=== PATIENT | female | born 1945 | race Caucasian/White ===

== ENCOUNTER 2018-09-19 19:08 | Inpatient (IN) ==
[2018-09-19 20:39] LABS: Basophils % 0.2 %; Eosinophils # 0.1 K/mcL (0.0-0.6); Eosinophils % 0.6 %; Hematocrit 30.7 % (35.3-44.9); Hemoglobin 9.1 g/dL (11.5-15.4); Immature Granulocytes % 1.2 % (0-4); Lymphocytes # 1.3 K/mcL (0.6-4.6); Lymphocytes % 10.4 %; Mean Corpuscular HGB Conc 29.6 g/dL (31.6-35.5); Mean Corpuscular Hemoglobin 28.2 pg (28.0-33.3); Mean Platelet Volume 9.9 fL (9.4-12.4); Monocytes # 0.5 K/mcL (0.0-1.3); Monocytes % 3.9 %; Neutrophils # 10.5 K/mcL (1.6-8.9); Platelet Count 235 K/mcL (140-400); Red Blood Count 3.23 M/mcL (3.82-4.97); Red Cell Distribution Width 18.8 % (11.5-14.5); Segmented Neutrophils % 83.7 %; White Blood Count 12.5 K/mcL (4.3-11.1)
[2018-09-19 20:56] LABS: INR 2.2
[2018-09-19 20:57] LABS: Potassium 2.8 mEq/L (3.5-5.1)
[2018-09-19] MEDS ORDERED: *HR* Heparin 5,000 UNIT/ML VIAL IVP PRN ×2 (21:19)
[2018-09-19] MEDS ORDERED: *HR* Heparin 5,000 UNIT/ML VIAL IVP ONE (21:19)
[2018-09-19] MEDS ORDERED: Potassium Effervescent 25 MEQ TABLET.EFF PO ONE (21:22)
--- NOTE | 2018-09-19 21:22 | Emergency Department Note ---
Disposition Clinical Impression: Hypokalemia, Elevated serum creatinine Anemia Qualifiers: Anemia type: unspecified type Qualified Code(s): D64.9 - Anemia, unspecified Deep vein thrombosis (DVT) of iliac vein of left lower extremity Qualifiers: Chronicity: acute Qualified Code(s): I82.422 - Acute embolism and thrombosis of left iliac vein Disposition: Admitted As Inpatient Condition: Good Referrals: Carol Lee CNP [Primary Care Provider] - Forms: ED Satisfaction Letter Time of Disposition: 00:08 General Adult HPI - General Chief complaint: ED Extremity Problem,Nontraumatic Stated complaint: Poss DVT Time Seen by Provider: 09/19/18 20:04 Source: patient Nursing Notes Reviewed: Yes Vital Signs Reviewed: Yes - History of Present Illness HPI Narrative: 73-year-old female with history of hypertension, lung cancer, COPD, DVT, diabetes who presents emergency Department with complaints of left lower extremity DVT. The patient was seen by hematology and was sent for DVT ultrasound given left lower extremity swelling and was found to have extensive partially occlusive thrombus in the left lower extremity. Patient states she has had previous DVT and actually was on Xarelto up until last week when she decided to stop taking her medication as she was tired of taking it. She notes that she had significant swelling over the last 24 hours and therefore did take a dose of her Xarelto this morning. Patient states she is otherwise had multiple mechanical recent falls without loss of consciousness or head injury. She otherwise denies any shortness of breath, chest pain, nausea, vomiting, diarrhea, dysuria, hematochezia, melena, hemoptysis. Pain Scale: 7 - Related Data Home Medications Medication Instructions Recorded Confirmed Atorvastatin Calcium [Lipitor] 20 mg PO HS 04/16/17 09/19/18 Gabapentin [Neurontin] 300 mg PO TID 04/16/17 09/19/18 GlipiZIDE [Glucotrol] 5 mg PO BID 04/16/17 09/19/18 Lisinopril [Zestril] 40 mg PO DAILY 04/16/17 09/19/18 Oxybutynin [Ditropan] 5 mg PO BID 04/16/17 09/19/18 Ranitidine HCl [Heartburn Relief] 150 mg PO BID 04/16/17 09/19/18 Sertraline [Zoloft] 100 mg PO DAILY 04/16/17 09/19/18 Spironolactone [Aldactone] 25 mg PO DAILY 04/16/17 09/19/18 Alendronate Sodium 70 mg PO SANCHES 05/27/17 09/19/18 Allopurinol [Zyloprim 100 MG] 100 mg PO DAILY 05/27/17 09/19/18 Amlodipine Besylate 10 mg PO DAILY 05/27/17 09/19/18 HYDROcodone/Acet 5/325 mg [[place] 1 tab PO Q6H PRN 09/19/18 09/19/18 5-325 mg] Rivaroxaban [Xarelto] 20 mg PO DAILY 09/19/18 09/19/18 Previous Rx's Medication Instructions Recorded Pramoxine [Proctofoam] 15 gm TP TID #1 foam 09/14/17 Allergies Allergy/AdvReac Type Severity Reaction Status Date / Time iodine Allergy Hives Verified 05/27/17 08:52 Review of Systems: ROS per history of present illness, all other systems reviewed and negative or normal. All systems ED: reviewed and negative except as stated. Review of Systems: As Per HPI Past Medical History - Past Medical History Medical history: Reports: asthma, cancer, DVT, diabetes, fibromyalgia, hypertension Surgical history: Reports: , cholecystectomy, hysterectomy Psychiatric history: Reports: depression - Social History Smoking Status: Current every day smoker Smokeless Tobacco Status: No Alcohol use: Reports: none Drug use: Reports: none Physical Exam General: Conversant. No apparent distress. Follow commands. Appears stated age. Neck: No JVD. Trachea midline. Neck supple. Eyes: PERRL. No scleral icterus. HENT: Normocephalic and atraumatic. Moist mucus membranes. Cardiovascular: Regular rate and rhythm. Normal S1 and S2. No murmurs appreci ated. Normal capillary refill. Extremities well perfused with 2+ distal pulses bilaterally. No edema. Pulmonary: Normal and equal breath sounds bilaterally, anteriorly and posteriorly. No wheezes, rales, or rhonchi. Not in respiratory distress. Speaks in full sentences. Abdomen: Soft, nondistended, and tontender. No bruits or masses. No guarding. Neuro: Alert and oriented x3. No slurred speech. No focal deficits noted. Skin: No rashes noted on visualized skin. Musculoskeletal: Patient's left lower extremity has significant edema when compared with the right, approximately twice the size. Trace edema pretibial. Normal sensation and pulses bilaterally. Psych: Normal mood. Pleasant. Makes appropriate eye contact. - General General appearance: alert Course Vital Signs Temperature 97.9 F 09/19/18 19:16 Pulse Rate 89 09/19/18 19:16 Respiratory Rate 16 09/19/18 19:16 Blood Pressure 143/87 09/19/18 19:16 O2 Sat by Pulse Oximetry 97 09/19/18 19:16 Temperature 97.9 F 09/19/18 19:16 Pulse Rate 100 09/19/18 22:00 Respiratory Rate 18 09/19/18 22:00 Blood Pressure 138/98 09/19/18 22:00 O2 Sat by Pulse Oximetry 100 09/19/18 22:00 Oxygen Delivery Oxygen Delivery Room Air Medical Decision Making - MDM Narrative Medical decision making narrative: 73-year-old female with history of lung cancer, DVT previously on Xarelto who stopped her medication last week. Vital signs are stable upon arrival. The patient does have significant left lower extremity swelling when compared with the right. She has no erythema or warmth. Pulses are intact. Ultrasound was reviewed from outpatient lab which shows extensive DVT including left common femoral, iliac extending all the way into her lower left leg. The patient is not tachycardic or hypoxic area she is not in no respiratory distress to be concern for pulmonary embolism. Given her multiple recent falls will evaluate with CT chest, abdomen/pelvis with CT lumbar and thoracic spine. Laboratory evaluation shows chronic-appearing anemia, hypokalemia which was repleted. The patient does have elevated creatinine but unsure of origin of this given she has had no recent blood work and unable to determine whether this is acute. The patient has evidence of multiple compression fractures. Otherwise the patient was ordered a heparin drip given her hypercoagulable state that she did take Xarelto and therefore this was not initiated. Discussed case with on-call hospitalist Dr. Lainez who agrees with plan for admission and accepts the patient to the inpatient service. Patient agrees with and understands course of treatment plan including plan for admission. All questions answered. - Medical Records Medical records reviewed: Yes I reviewed the patient's medical records. - Lab Data Lab results reviewed: Yes I reviewed the patient's lab results. Result diagrams: 09/19/18 20:26 09/19/18 20:26 Lab Results 09/19/18 09/19/18 09/19/18 Range/Units 20:26 20:26 20:26 WBC 12.5 H (4.3-11.1) K/mcL RBC 3.23 L (3.82-4.97) M/mcL Hgb 9.1 L (11.5-15.4) g/dL Hct 30.7 L (35.3-44.9) % MCV 95.0 (83.0-100.0) fL MCH 28.2 (28.0-33.3) pg MCHC 29.6 L (31.6-35.5) g/dL RDW 18.8 H (11.5-14.5) % Plt Count 235 (140-400) K/mcL MPV 9.9 (9.4-12.4) fL Immature Gran % 1.2 (0-4) % Seg Neutrophils % 83.7 % Lymphocytes % 10.4 % Monocytes % 3.9 % Eosinophils % 0.6 % Basophils % 0.2 % Neutrophils # 10.5 H (1.6-8.9) K/mcL Lymphocytes # 1.3 (0.6-4.6) K/mcL Monocytes # 0.5 (0.0-1.3) K/mcL Eosinophils # 0.1 (0.0-0.6) K/mcL Basophils # 0.0 (0.0-0.2) K/mcL PT 25.0 H (9.4-12.1) Seconds INR 2.2 APTT 38.0 H (26.0-36.0) Seconds Heparin Anti-Xa, Unfract (0.30-0.70) IU/mL Sodium 134 L (136-145) mEq/L Potassium 2.8 L (3.5-5.1) mEq/L Chloride 101 (98-107) mEq/L Carbon Dioxide 24 (23-29) mEq/L BUN 41 H (8-23) mg/dL Creatinine 1.34 H (0.60-1.20) mg/dL Est GFR ( Amer) 47 L (> 60) Est GFR (Non-Af Amer) 39 L (> 60) BUN/Creatinine Ratio 31 H (6-26) Glucose 117 H (70-105) mg/dL Calculated Osmolality 289 (280-300) Calcium 10.0 (8.6-10.3) mg/dL 09/19/18 Range/Units 20:26 WBC (4.3-11.1) K/mcL RBC (3.82-4.97) M/mcL Hgb (11.5-15.4) g/dL Hct (35.3-44.9) % MCV (83.0-100.0) fL MCH (28.0-33.3) pg MCHC (31.6-35.5) g/dL RDW (11.5-14.5) % Plt Count (140-400) K/mcL MPV (9.4-12.4) fL Immature Gran % (0-4) % Seg Neutrophils % % Lymphocytes % % Monocytes % % Eosinophils % % Basophils % % Neutrophils # (1.6-8.9) K/mcL Lymphocytes # (0.6-4.6) K/mcL Monocytes # (0.0-1.3) K/mcL Eosinophils # (0.0-0.6) K/mcL Basophils # (0.0-0.2) K/mcL PT (9.4-12.1) Seconds INR APTT (26.0-36.0) Seconds Heparin Anti-Xa, Unfract > 2.00 H* (0.30-0.70) IU/mL Sodium (136-145) mEq/L Potassium (3.5-5.1) mEq/L Chloride (98-107) mEq/L Carbon Dioxide (23-29) mEq/L BUN (8-23) mg/dL Creatinine (0.60-1.20) mg/dL Est GFR ( Amer) (> 60) Est GFR (Non-Af Amer) (> 60) BUN/Creatinine Ratio (6-26) Glucose (70-105) mg/dL Calculated Osmolality (280-300) Calcium (8.6-10.3) mg/dL - Radiology Data Radiology results reviewed: Yes I reviewed the patient's radiology results. Lower shimmy venous Doppler completed 09/19/18 shows partially occlusive DVT of the left distal iliac, left common femoral, left superficial femoral, left popliteal, left posterior tibial, left perineal, and lesser saphenous. - EKG Data EKG #1 EKG attestation: Yes I reviewed and interpreted this EKG. EKG results narrative: Normal sinus rhythm rate 94. Normal intervals. Slight left axis. There were T- wave inversions in aVL. When compared with prior from 09/14/17 there are no other significant changes. Attestation Statement - Attestation Attestation: I, Roger Wharton DO, examined this patient [id number] and my medical decision-making was reviewed with Dr. Nicole Hatfield, Resident Physician. I agree with the documented findings, disposition and treatment plan as described except to the extent set forth below. I personally supervised and was present for the gaytan/critical portions of the procedures completed by the resident documented below. Please see my progress notes for details.
[2018-09-19] MEDS ORDERED: Heparin 25,000 UNIT/250 ML D5W 25,000 UNIT/250 ML IV.SOLN IVC SCH (21:30)
[2018-09-19] MEDS ORDERED: 0.9 % Sodium Chloride 1,000 ML IVC STA (21:43)
--- NOTE | 2018-09-19 22:34 | Emergency Department Note ---
Disposition Clinical Impression: Hypokalemia, Elevated serum creatinine, Deep vein thrombosis (DVT) of iliac vein of left lower extremity Anemia Qualifiers: Anemia type: unspecified type Qualified Code(s): D64.9 - Anemia, unspecified Disposition: Admitted As Inpatient Condition: Fair Time of Disposition: 00:21 General Adult HPI - General Chief complaint: ED Extremity Problem,Nontraumatic Stated complaint: Poss DVT Time Seen by Provider: 09/19/18 20:04 Source: patient - History of Present Illness Pain Scale: 7 - Related Data Home Medications Medication Instructions Recorded Confirmed Atorvastatin Calcium [Lipitor] 20 mg PO HS 04/16/17 09/19/18 Gabapentin [Neurontin] 300 mg PO TID 04/16/17 09/19/18 GlipiZIDE [Glucotrol] 5 mg PO BID 04/16/17 09/19/18 Lisinopril [Zestril] 40 mg PO DAILY 04/16/17 09/19/18 Oxybutynin [Ditropan] 5 mg PO BID 04/16/17 09/19/18 Ranitidine HCl [Heartburn Relief] 150 mg PO BID 04/16/17 09/19/18 Sertraline [Zoloft] 100 mg PO DAILY 04/16/17 09/19/18 Spironolactone [Aldactone] 25 mg PO DAILY 04/16/17 09/19/18 Alendronate Sodium 70 mg PO SANCHES 05/27/17 09/19/18 Allopurinol [Zyloprim 100 MG] 100 mg PO DAILY 05/27/17 09/19/18 Amlodipine Besylate 10 mg PO DAILY 05/27/17 09/19/18 HYDROcodone/Acet 5/325 mg [[place] 1 tab PO Q6H PRN 09/19/18 09/19/18 5-325 mg] Rivaroxaban [Xarelto] 20 mg PO DAILY 09/19/18 09/19/18 Previous Rx's Medication Instructions Recorded Pramoxine [Proctofoam] 15 gm TP TID #1 foam 09/14/17 Allergies Allergy/AdvReac Type Severity Reaction Status Date / Time iodine Allergy Hives Verified 05/27/17 08:52 Past Medical History - Past Medical History Medical history: Reports: asthma, cancer, DVT, diabetes, fibromyalgia, hypertension Surgical history: Reports: , cholecystectomy, hysterectomy Psychiatric history: Reports: depression - Social History Smoking Status: Current every day smoker Smokeless Tobacco Status: No Alcohol use: Reports: none Drug use: Reports: none Physical Exam - General General appearance: alert Course Vital Signs Temperature 97.9 F 09/19/18 19:16 Pulse Rate 89 09/19/18 19:16 Respiratory Rate 16 09/19/18 19:16 Blood Pressure 143/87 09/19/18 19:16 O2 Sat by Pulse Oximetry 97 09/19/18 19:16 Temperature 97.9 F 09/19/18 19:16 Pulse Rate 100 09/19/18 22:00 Respiratory Rate 18 09/19/18 22:00 Blood Pressure 138/98 09/19/18 22:00 O2 Sat by Pulse Oximetry 100 09/19/18 22:00 Oxygen Delivery Oxygen Delivery Room Air Medical Decision Making - Lab Data Result diagrams: 09/19/18 20:26 09/19/18 20:26 Lab Results 09/19/18 09/19/18 09/19/18 Range/Units 20:26 20:26 20:26 WBC 12.5 H (4.3-11.1) K/mcL RBC 3.23 L (3.82-4.97) M/mcL Hgb 9.1 L (11.5-15.4) g/dL Hct 30.7 L (35.3-44.9) % MCV 95.0 (83.0-100.0) fL MCH 28.2 (28.0-33.3) pg MCHC 29.6 L (31.6-35.5) g/dL RDW 18.8 H (11.5-14.5) % Plt Count 235 (140-400) K/mcL MPV 9.9 (9.4-12.4) fL Immature Gran % 1.2 (0-4) % Seg Neutrophils % 83.7 % Lymphocytes % 10.4 % Monocytes % 3.9 % Eosinophils % 0.6 % Basophils % 0.2 % Neutrophils # 10.5 H (1.6-8.9) K/mcL Lymphocytes # 1.3 (0.6-4.6) K/mcL Monocytes # 0.5 (0.0-1.3) K/mcL Eosinophils # 0.1 (0.0-0.6) K/mcL Basophils # 0.0 (0.0-0.2) K/mcL PT 25.0 H (9.4-12.1) Seconds INR 2.2 APTT 38.0 H (26.0-36.0) Seconds Heparin Anti-Xa, Unfract (0.30-0.70) IU/mL Sodium 134 L (136-145) mEq/L Potassium 2.8 L (3.5-5.1) mEq/L Chloride 101 (98-107) mEq/L Carbon Dioxide 24 (23-29) mEq/L BUN 41 H (8-23) mg/dL Creatinine 1.34 H (0.60-1.20) mg/dL Est GFR ( Amer) 47 L (> 60) Est GFR (Non-Af Amer) 39 L (> 60) BUN/Creatinine Ratio 31 H (6-26) Glucose 117 H (70-105) mg/dL Calculated Osmolality 289 (280-300) Calcium 10.0 (8.6-10.3) mg/dL 09/19/18 Range/Units 20:26 WBC (4.3-11.1) K/mcL RBC (3.82-4.97) M/mcL Hgb (11.5-15.4) g/dL Hct (35.3-44.9) % MCV (83.0-100.0) fL MCH (28.0-33.3) pg MCHC (31.6-35.5) g/dL RDW (11.5-14.5) % Plt Count (140-400) K/mcL MPV (9.4-12.4) fL Immature Gran % (0-4) % Seg Neutrophils % % Lymphocytes % % Monocytes % % Eosinophils % % Basophils % % Neutrophils # (1.6-8.9) K/mcL Lymphocytes # (0.6-4.6) K/mcL Monocytes # (0.0-1.3) K/mcL Eosinophils # (0.0-0.6) K/mcL Basophils # (0.0-0.2) K/mcL PT (9.4-12.1) Seconds INR APTT (26.0-36.0) Seconds Heparin Anti-Xa, Unfract > 2.00 H* (0.30-0.70) IU/mL Sodium (136-145) mEq/L Potassium (3.5-5.1) mEq/L Chloride (98-107) mEq/L Carbon Dioxide (23-29) mEq/L BUN (8-23) mg/dL Creatinine (0.60-1.20) mg/dL Est GFR ( Amer) (> 60) Est GFR (Non-Af Amer) (> 60) BUN/Creatinine Ratio (6-26) Glucose (70-105) mg/dL Calculated Osmolality (280-300) Calcium (8.6-10.3) mg/dL Attestation Statement - Attestation Attestation: I, Roger Wharton DO, examined this patient [id number] and my medical decisi on-making was reviewed with Dr. Nicole Hatfield Resident Physician. I agree with the documented findings, disposition and treatment plan as described except to the extent set forth below. I personally supervised and was present for the gaytan/critical portions of the procedures completed by the resident documented below. Please see my progress notes for details. 73-year-old female presents emergency room with complaint of left leg swelling and pain. Patient is currently in treatment for lung cancer at [facility]. Currently, she is denying chest pain shortness of breath fevers or chills. Does not have any nausea vomiting or diarrhea. No other acute issues noted this time. Patient was sent for an outpatient ultrasound lower extremity by her oncologist. She is found to have extensive DVT. She was previously on Xarelto secondary to a DVT in the same leg. She is not taking the medication for almost 1 week secondary to the symptoms. Patient did take her Xarelto last night. She has not been taking all her other medications as they are prescribed. She is currently not taking chemotherapy or radiation. Vital signs are reviewed and are stable. Patient is alert she is oriented. Patient has fallen 3 times the last several days. She was evaluated for the first fall but has not been evaluated for the second 2 falls. Head is atraumatic. Pupils were reactive. Extracted muscles are intact. Oropharynx is patent. Trachea is midline. Lungs are clear with diminished aeration the left side. Abdomen is soft no pulsatile masses or lesions. Pain is noted in the lower back. Pelvis is stable. Tremors are normal outside of warmth and swelling to left lower extremity this time. Ultrasound results were reviewed by myself. Patient was started on a heparin drip at this point secondary to the extent of the DVT. Patient was CT of the chest and abdomen along with reconstruction of the thoracic and lumbar spine secondary to the fall. Patient is otherwise stable this point. EKG was collected. Is no acute changes. This is reviewed by myself in documented in the resident physician's note. No critical care provider the patient's treatment course at this time. [id number] for chest wall related issues or abdominal pathology. She does have what appears to be a lytic lesion to the apex of the sixth rib. She also has multiple compression fractures. Some of them are old some of them may be new from the falls. Patient's last fall was yesterday. She has better pain control this point. She denies any other symptoms or issues. She is lying on her side in the bed and says that she feels completely comfortable. Hospita list Dr. clinton and I reviewed the case at length. No other recommendations or concerns. Magnesium test was ordered. Patient will be monitored here in the emergency department until admission process is completed.
[2018-09-19] MEDS ORDERED: *HR* FentaNYL (PF) 100 MCG/2 ML VIAL IVP ONE (22:36)
[2018-09-20] MEDS: Heparin 25,000 UNIT/250 ML D5W 25,000 UNIT/250 ML IV.SOLN IVC SCH (03:58)
[2018-09-20] MEDS ORDERED: Naloxone 0.4 MG/ML INJ IVP PRN (06:29)
[2018-09-20 06:30] LABS: Basophils % 0.1 %; Eosinophils # 0.1 K/mcL (0.0-0.6); Eosinophils % 0.7 %; Hematocrit 26.7 % (35.3-44.9); Hemoglobin 7.9 g/dL (11.5-15.4); Immature Granulocytes % 0.9 % (0-4); Lymphocytes # 1.4 K/mcL (0.6-4.6); Lymphocytes % 11.1 %; Mean Corpuscular HGB Conc 29.6 g/dL (31.6-35.5); Mean Corpuscular Hemoglobin 28.3 pg (28.0-33.3); Mean Corpuscular Volume 95.7 fL (83.0-100.0); Mean Platelet Volume 10.3 fL (9.4-12.4); Monocytes # 0.5 K/mcL (0.0-1.3); Neutrophils # 10.5 K/mcL (1.6-8.9); Platelet Count 216 K/mcL (140-400); Red Blood Count 2.79 M/mcL (3.82-4.97); Red Cell Distribution Width 18.7 % (11.5-14.5); Segmented Neutrophils % 83.2 %; White Blood Count 12.7 K/mcL (4.3-11.1)
[2018-09-20] MEDS ORDERED: *HR* Dextrose 50 % in Water (Syg) 50 ML SYRINGE IVP PRN (06:34)
[2018-09-20] MEDS ORDERED: Dextrose Gel 15 GM/37.5 ML TUBE PO PRN ×2 (06:34)
[2018-09-20] MEDS ORDERED: D5% in Water 1,000 ML IVC PRN (06:34)
--- NOTE | 2018-09-20 06:49 | Internal Med History&Physical ---
Date of Encounter: 09/20/18 Time of Encounter: 06:00 Internal Medicine - H&P: HPI Chief complaint: DVT Admitted From: Home Plans for Post Hospital Care: Home History of present illness: Ms. Frank is a 73 year old female with past medical history significant for hypertension, DVT, COPD, asthma, lung cancer, diabetes, depression, and tobacco abuse who presents to ER for left lower extremity swelling and positive outpa tient ultrasound results showing extensive DVT including left femoral, iliac extending all the way into her left leg. Patient was prescribed Xarelto for previous DVT in same leg but reports taking it inconsistently with last dose being reportedly yesterday morning. Patient also reports frequent mechanical falls at home but denies striking her head, loosing consciousness, or feeling like shes going to pass out. Was recently diagnosed with lung cancer and is following with oncology at [facility] getting ready to start chemo and radiation. While in ER patient also complained of some pain to her back from recent falls otherwise had no other complaints besides left lower extremity swelling. ER obtained CT of the abdomen pelvis which showed no acute abdominopelvic abnormality. Also obtained CT of the chest which is still not signed which showed confluence right hilar mass with associated right midlung airspace disease most likely neoplastic, infection not entirely excluded, bilateral cavitary lesions with right larger than left that may represent advanced neoplasm or infectious versus inflammatory process, round opacity in the right midlung exerts mass effect upon the right mainstem bronchus, sternal and left sixth rib lesion suspicious for neoplasm versus sequela of prior trauma. ER also obtained CT of lumbar and thoracic spine which is still not signed which showed age-indeterminate compression fractures of T5, T7, T8, L1, L3, and multilevel degenerative changes. ER reported EKG as sinus rhythm with no significant changes when compared with prior from 09/14/17. Patient upon my exam currently denies any headache, numbness, tingling, chest pain, shortness of breath, cough, abdominal pain, nausea, bowel or bladder changes. Reports following regularly with her PCP and recently with [facility] oncology. Reports she lives at home with her significant other who helps take care of her. Reports recent decrease in oral intake just because she has not felt like eating. Past Med Surg Social Fam HX - Past Medical History Medical history: asthma, cancer, COPD, DVT, diabetes, fibromyalgia, hypertension Additional medical history: DDD Psychiatric history: depression - Past Surgical History Surgical History: , cholecystectomy, hysterectomy Additional surgical history: Left humerus ORIF 04/16/17 - Social History Smoking Status: Current every day smoker Smokeless Tobacco Status: No Alcohol use: none Drug use: none Internal Medicine - H&P: Meds Atorvastatin Calcium [Lipitor] 20 mg PO HS 04/16/17 [History] Gabapentin [Neurontin] 300 mg PO TID 04/16/17 [History] GlipiZIDE [Glucotrol] 5 mg PO BID 04/16/17 [History] Lisinopril [Zestril] 40 mg PO DAILY 04/16/17 [History] Oxybutynin [Ditropan] 5 mg PO BID 04/16/17 [History] Ranitidine HCl [Heartburn Relief] 150 mg PO BID 04/16/17 [History] Sertraline [Zoloft] 100 mg PO DAILY 04/16/17 [History] Spironolactone [Aldactone] 25 mg PO DAILY 04/16/17 [History] Alendronate Sodium 70 mg PO SANCHES 05/27/17 [History] Allopurinol [Zyloprim 100 MG] 100 mg PO DAILY 05/27/17 [History] Amlodipine Besylate 10 mg PO DAILY 05/27/17 [History] Pramoxine [Proctofoam] 15 gm TP TID #1 foam 09/14/17 [Rx] HYDROcodone/Acet 5/325 mg [[place] 5-325 mg] 1 tab PO Q6H PRN 09/19/18 [History] Rivaroxaban [Xarelto] 20 mg PO DAILY 09/19/18 [History] Allergy/AdvReac Type Severity Reaction Status Date / Time iodine Allergy Hives Verified 05/27/17 08:52 All Systems PM: A 10-system review of systems was performed and is negative for pertinent findings except as documented above in the HPI. - Constitutional Vitals: Temp Pulse Resp BP Pulse Ox 98.5 F 81 16 132/75 100 09/20/18 03:24 09/20/18 03:24 09/20/18 03:24 09/20/18 03:24 09/20/18 03:24 Exam: General: Alert and oriented to person, time, knew she was in hospital but thought she was in [place], able to be reoriented. Frail-appearing. Skin:Normal color, no rash, no lesions. HEENT:Pupils equal, round and reactive. Cardiovascular: Heart sounds distant, no rubs, murmurs or gallops. No JVD. Pulse regular. Lungs: Breath sounds decreased with rhonchi noted. Abdomen:Soft, non-tender, no rigidity. Extremities:No deformity, tenderness, no joint swelling or clubbing. Edema noted to left lower extremity larger than right, nontender, distal PMS intact. Neurological:Normal cognition and motor skills. Pulses:Carotid and radial pulses normal +2. Rest of the physical exam is non contributory. Internal Med - H&P Results - Labs CBC & Chem 7: 09/20/18 04:38 09/20/18 04:38 Labs: Short CBC 09/19/18 09/20/18 Range/Units 20:26 04:38 WBC 12.5 H 12.7 H (4.3-11.1) K/mcL Hgb 9.1 L 7.9 L (11.5-15.4) g/dL Hct 30.7 L 26.7 L (35.3-44.9) % Plt Count 235 216 (140-400) K/mcL Neutrophils # 10.5 H 10.5 H (1.6-8.9) K/mcL BMP 09/19/18 20:26 Sodium 134 L Potassium 2.8 L Chloride 101 Carbon Dioxide 24 BUN 41 H Creatinine 1.34 H Glucose 117 H Calcium 10.0 - Impressions ITS Impressions Abdomen/Pelvis CT 09/19/18 22:14 IMPRESSION: No acute noncontrast abdominopelvic abnormality. D/ / Deisy Elena Cha, MD / Deisy Elena Cha, MD Interpreting Provider: Deisy Elena Cha, MD Chest CT 09/19/18 22:14 IMPRESSION: Confluent right hilar mass with associated right midlung airspace disease most likely neoplastic. Infection not entirely excluded. Bilateral cavitary lesions, right larger than left may represent advanced neoplasm or infectious versus inflammatory process. Round opacity in the right mid lung exerts mass effect upon the right mainstem bronchus. Sternal and left 6th rib lesions suspicious for neoplasm versus sequela of prior trauma. D/ / Black Brand / Black Brand Interpreting Provider: Black Brand Lumbar Spine CT 09/19/18 22:18 IMPRESSION: Age-indeterminate compression fractures of T5, T7, T8, L1, L, and L3. Multilevel degenerative changes. D/ / Black Brand / Black Brand Interpreting Provider: Black Brand Thoracic Spine CT 09/19/18 22:18 IMPRESSION: Age-indeterminate compression fractures of T5, T7, T8, L1, L, and L3. Multilevel degenerative changes. D/ / [employer] / Black Brand Interpreting Provider: [facility] - Assessment and Plan (1) DVT (deep venous thrombosis) Current Visit: Yes Status: Acute Assessment and plan: With recent swelling to left lower extremity. ER reported outpatient left lower extremity ultrasound showing extensive DVT including left femoral, iliac extending all the way into her left leg. Previous left lower extremity DVT on Xarelto which she has not been taking consistently. ER started patient on heparin drip, will continue same. Patient reports most recent Xarelto dose yesterday morning, confirmed with pharmacy heparin drip safe to be continued now based on labs. Continuous cardiac monitoring. Qualifiers: DVT location: lower extremity Laterality: left Qualified Code(s): I82.402 - Acute embolism and thrombosis of unspecified deep veins of left lower extremity (2) Frequent falls Current Visit: Yes Status: Chronic Assessment and plan: Denies any injury currently, reported back pain to ER. CT of lumbar and thoracic spine which is still not signed which showed age- indeterminate compression fractures of T5, T7, T8, L1, L3, and multilevel degenerative changes. Fall precautions. Denies striking head or loosing consciousness, however will obtain head CT due to frequent falls with intermittent anticoagulation use. PT, OT consults ordered. Social work consult ordered for any discharge needs. (3) Increased white blood cell count Current Visit: Yes Status: Acute Assessment and plan: No signs of current infection. Denies any fever, urinary changes, shortness of breath, or cough. Repeat labs ordered. Monitor closely for any suspected infection. Qualifiers: Leukocytosis type: unspecified Qualified Code(s): D72.829 - Elevated white blood cell count, unspecified (4) Hypokalemia Current Visit: Yes Status: Acute Assessment and plan: Potassium 2.8 in ER. Replacement given in ER. Repeat labs ordered. Continuous cardiac monitoring. (5) Acute kidney failure Current Visit: Yes Status: Acute Assessment and plan: Likely secondary to poor PO intake. Received fluids in ER. Repeat labs ordered. Qualifiers: Acute renal failure type: unspecified Qualified Code(s): N17.9 - Acute kidney failure, unspecified (6) Decreased hemoglobin Current Visit: Yes Status: Acute Assessment and plan: Slightly decreased at 9.1 currently from last labs on file last year at 10.5 No signs of bleeding. Monitor closely due to intermittent outpatient Xarelto use and being on Heparin drip for DVT. (7) Thoracic compression fracture Current Visit: Yes Status: Acute Assessment and plan: ER obtained CT of lumbar and thoracic spine due to frequent falls with reported back pain to ER which is still not signed which showed age-indeterminate compression fractures of T5, T7, T8, L1, L3, and multilevel degenerative changes. Consult ortho spine for any recommendations. Currently denies any back pain. Plan as stated above. Qualifiers: Encounter type: initial encounter Thoracic vertebra fracture level: unspecified thoracic vertebra Qualified Code(s): S22.000A - Wedge compression fracture of unspecified thoracic vertebra, initial encounter for closed fracture (8) Lumbar compression fracture Current Visit: Yes Status: Acute Assessment and plan: Plan as stated above. Qualifiers: Encounter type: initial encounter Lumbar vertebra fracture level: unspecified lumbar vertebra Qualified Code(s): S32.000A - Wedge compression fracture of unspecified lumbar vertebra, initial encounter for closed fracture (9) Tobacco abuse Current Visit: Yes Status: Chronic Assessment and plan: Cessation strongly encouraged. (10) Diabetes mellitus Current Visit: Yes Status: Chronic Assessment and plan: Sliding scale insulin ordered. Accuchecks ACHS. Diabetic diet. Hold home medications. Qualifiers: Diabetes mellitus type: type 2 Qualified Code(s): E11.9 - Type 2 diabetes mellitus without complications - Time Spent With Patient Total time spent is greater than 50% in coordination of care (as documented) at patient's floor/unit and/or counseling patient:
[2018-09-20 06:51] LABS: Calcium 9.1 mg/dL (8.6-10.3); Potassium 3.3 mEq/L (3.5-5.1)
[2018-09-20] MEDS: Insulin LISPRO 300 UNITS/3 ML VIAL SQ SCH ×3 (08:39→16:57)
[2018-09-20 09:04] LABS: Hematocrit 28.1 % (35.3-44.9); Hemoglobin 8.2 g/dL (11.5-15.4)
[2018-09-20] MEDS: *HR* HYDROcodone/Acet 5/325 mg TABLET PO PRN ×2 (09:09→22:23)
[2018-09-20] MEDS ORDERED: Potassium Chloride Elixir 20 MEQ/15 ML UDC PO ONE (09:24)
[2018-09-20] MEDS ORDERED: 0.9 % Sodium Chloride 250 ML ONE (09:45)
--- NOTE | 2018-09-20 13:44 | Event Note ---
<MarimarBerta M - Last Filed: 09/20/18 17:04> Date of Encounter: 09/20/18 I examined this patient and my medical decision-making was reviewed with the Resident Physician Dr Obregon. I agree with the documented findings, disposition and treatment plan as described except to the extent set forth below. Ms Frank is being observed for DVT and anemia awake, comfortable appearing, no sob on o2 nc. denies changes in cough, sob and wheezing. no fevers or chills. no pain in lle at this time. admits to not taking her AC as prescribed. gen- alert, awake,appears stated age cv- reg rate and rhythm, normal s1,s2, no pitting le edema lungs- course throughout, no wheezing, normal resp effort on o2 nc neuro- AAOx3 Extensive LLE DVT 2/2 non compliance w Xarelto- cont hep gtt until hgb stabilizes confirming can transition to oral safely Acute on chronic anemia unclear etiology, may be related to hep gtt- she has hemoptysis that she is noting is at her baseline, cont to monitor serial hgbs, ua , fobt Fall on AC- CT head neg, neuro checks for 24 h, pt/ot evals Leukocytosis, may be reactive, rule out infectious cause- CT chest shows progressed cancer vs infection/inflammation, her sxs are at baseline, obtain [facility] most recent CT scan to confirm stability, cont to monitor, no abx at this time, check ua, if develops fever or worsening wbc elevation would consider broad abx at that time, she has NOT started chemo yet Lung Cancer- follows at [facility] not yet started chemo or radiation Hypokalemia- cont ot replete, tele <Mel Obregon N - Last Filed: 09/20/18 18:34> Date of Encounter: 09/20/18 Time of Encounter: 13:43 INTERVAL HISTORY: Ms. Frank was seen and evaluated at the bedside. At that time, patient was noted to be tearful and appeared to be significantly uncomfortable. She reports severe chronic back pain, for which she takes [place] 53 25 mg at home. She denies any chest pain, shortness of breath, or palpitations. She denies any new complaints or concerns at this time. PHYSICAL EXAM: GENERAL: Cachectic-appearing adult female in moderate distress secondary to back pain. She is restless and tearful. HEENT: Atraumatic and normocephalic. CARDIOVASCULAR: Regular rate and rhythm. S1 and S2 present. No murmurs, gallops, or rubs. RESPIRATORY: Diffusely decreased, course breath sounds bilaterally. Chest rises and falls symmetrically without accessory muscle use. GASTROINTESTINAL: Abdomen is soft, nontender, nondistended. EXTREMITIES: Left lower extremity is significantly edematous versus right. SKIN: Warm, dry, and intact. NEUROLOGIC: Alert and oriented x3. Patient is cooperative with exam and answers questions appropriately. No apparent focal deficits. PSYCHIATRIC: Patient is tearful. ASSESSMENT AND PLAN: (1) Left lower extremity DVT Outpatient ultrasound was significant for extensive DVT of the left lower extremity, including the left femoral and iliac vessels. The patient was initially trialed on an outpatient therapy with Xarelto; however, this was unsuccessful due to noncompliance with therapy. - Continue heparin gtt. - Continuous pulse oximetry and cardiac monitoring. (2) ARANZA Resolved. Initial serum creatinine noted to be elevated at 1.34, which did improve to 1.14 after administration of 1 L IVF. Suspect secondary to poor oral intake. - Continue to monitor and trend daily serum creatinine. - Encourage adequate PO intake. (3) Hypokalemia Patient noted to be significantly hypokalemic on initial laboratory studies at 2.8. She did receive oral potassium supplementation, with repeat improved at 3.3. Magnesium was noted to be low normal at 1.6. - Additional potassium repletion today with 40mEq KCl elixir. Magnesium repleted with 2g IV. - Repeat laboratory studies in AM. (4) Acute on chronic anemia Unclear etiology, possibly related to initiation of heparin drip. Hemoglobin and hematocrit relatively stable throughout the day around 9.0. - Continue to monitor and trend hemoglobin and hematocrit. Type and screen completed today. - Urinalysis and fecal occult blood test pending. (5) Frequent falls Patient reports frequent falls at home, and did have a recent fall during which she struck her head. CT imaging in the emergency department did not demonstrate any acute intracranial abnormalities; however, multiple thoracic and lumbar compression fractures were noted. - Continue fall precautions. - Occupational and physical therapy consults placed for recommendations. (6) Leukocytosis Unclear etiology. Patient noted to have elevated WBC of 12.7; however, she is afebrile and has no apparent source of infection. - Continue to monitor and trend daily laboratory studies. - Urinalysis pending. (7) Compression fractures CT imaging demonstrated multiple compression fractures as well as degenerative changes throughout the thoracic and lumbar spine. - Continue home analgesic regimen. - Consult placed to with [facility] for recommendations. (8) Diabetes mellitus - Accuchecks and low-dose SSI ACHS. (9) Lung cancer Known history of lung cancer. Patient follows with [facility] oncology. (10) Tobacco abuse Tobacco cessation encouraged. (11) DVT prophylaxis - Heparin gtt.
[2018-09-20 14:36] LABS: Hematocrit 30.3 % (35.3-44.9)
--- NOTE | 2018-09-20 16:20 | Electrocardiograph Report ---
[place] [id number] Test Date: 2018-09-19 Pat Name: Ivana Frank Department: [id number] Room: 3A41 Gender: F Educational/Development Assistant: : 1945 Requested By: Roger Wharton Order Number: [id number] Reading MD: Naida Pedraza Measurements Intervals [place] Rate: 94 P: 60 MI: 142 QRS: -47 QRSD: 104 T: 99 QT: 379 QTc: 474 Interpretive Statements Sinus rhythm Left anterior fascicular block Nonspecific T abnrm, anterolateral leads Electronically Signed On 09-20-2018 16:19:38 EDT by Naida Pedraza
[2018-09-20] MEDS: amLODIPine 5 MG TABLET PO SCH (16:51)
[2018-09-20 21:41] LABS: Hematocrit 30.3 % (35.3-44.9); Hemoglobin 8.9 g/dL (11.5-15.4)
[2018-09-20 21:46] LABS: Bilirubin,Urine Negative (Negative); Blood,Urine Negative (Negative); Clarity,Urine Clear (Clear); Color,Urine Yellow (Yellow); Glucose,Urine (UA) Normal (Normal); Ketones,Urine Negative (Negative); Leukocyte Esterase,Urine Negative (Negative); Nitrite,Urine Negative (Negative); Protein,Urine Negative (Neg-Trace); Specific Gravity,Urine 1.014 (1.010-1.025); Urobilinogen,Urine Normal (Normal)
[2018-09-21] MEDS ORDERED: 0.9 % Sodium Chloride 250 ML ONE ×2 (00:38→14:05)
[2018-09-21] MEDS: Heparin 25,000 UNIT/250 ML D5W 25,000 UNIT/250 ML IV.SOLN IVC SCH (02:34)
[2018-09-21 05:12] LABS: BUN/Creatinine Ratio 29 (6-26); Blood Urea Nitrogen 20 mg/dL (8-23); Calcium 8.9 mg/dL (8.6-10.3); Carbon Dioxide 22 mEq/L (23-29); Chloride 106 mEq/L (98-107); Glucose 102 mg/dL (70-105); Magnesium 2.1 mg/dL (1.6-2.6); Osmolality,Calculated 287 (280-300); Phosphorous 2.3 mg/dL (2.7-4.5); Potassium 3.4 mEq/L (3.5-5.1); Sodium 137 mEq/L (136-145); eGFR For African Americans > 60 (> 60); eGFR For Non-African Americans > 60 (> 60)
[2018-09-21 05:43] LABS: Basophils % 0.1 %; Eosinophils # 0.1 K/mcL (0.0-0.6); Hematocrit 24.9 % (35.3-44.9); Hemoglobin 7.5 g/dL (11.5-15.4); Immature Granulocytes % 1.1 % (0-4); Lymphocytes # 1.4 K/mcL (0.6-4.6); Lymphocytes % 12.4 %; Mean Corpuscular HGB Conc 30.1 g/dL (31.6-35.5); Mean Corpuscular Hemoglobin 28.4 pg (28.0-33.3); Mean Platelet Volume 9.8 fL (9.4-12.4); Monocytes # 0.5 K/mcL (0.0-1.3); Monocytes % 4.3 %; Neutrophils # 9.4 K/mcL (1.6-8.9); Platelet Count 198 K/mcL (140-400); Red Blood Count 2.64 M/mcL (3.82-4.97); Red Cell Distribution Width 18.9 % (11.5-14.5); Segmented Neutrophils % 81.1 %; White Blood Count 11.5 K/mcL (4.3-11.1)
[2018-09-21 05:52] LABS: Mean Corpuscular Volume 94.3 fL (83.0-100.0)
[2018-09-21] MEDS: Insulin LISPRO 300 UNITS/3 ML VIAL SQ SCH ×3 (08:26→16:08)
[2018-09-21] MEDS ORDERED: Potassium Chloride Elixir 20 MEQ/15 ML UDC PO ONE (09:00)
--- NOTE | 2018-09-21 09:07 | Internal Med Progress Note ---
Date of Encounter: 09/21/18 Time of Encounter: 09:06 - Constitutional Vitals: Temp Pulse Resp BP Pulse Ox 98.1 F 68 15 123/73 94 09/21/18 07:03 09/21/18 07:03 09/21/18 07:03 09/21/18 07:03 09/21/18 07:03 Internal Medicine: Result - Labs CBC & Chem 7: 09/21/18 05:34 09/21/18 04:35 Labs: Short CBC 09/20/18 09/20/18 09/20/18 Range/Units 08:46 14:07 21:06 WBC (4.3-11.1) K/mcL Hgb 8.2 L 9.0 L 8.9 L (11.5-15.4) g/dL Hct 28.1 L 30.3 L 30.3 L (35.3-44.9) % Plt Count (140-400) K/mcL Neutrophils # (1.6-8.9) K/mcL 09/21/18 Range/Units 05:34 WBC 11.5 H (4.3-11.1) K/mcL Hgb 7.5 L (11.5-15.4) g/dL Hct 24.9 L (35.3-44.9) % Plt Count 198 (140-400) K/mcL Neutrophils # 9.4 H (1.6-8.9) K/mcL BMP 09/21/18 04:35 Sodium 137 Potassium 3.4 L Chloride 106 Carbon Dioxide 22 L BUN 20 Creatinine 0.68 Glucose 102 Calcium 8.9 Urine 09/20/18 Range/Units 21:30 Urine Color Yellow (Yellow) Urine Clarity Clear (Clear) Urine pH 6.0 (5.0-8.0) pH Units Ur Specific [place] 1.014 (1.010-1.025) Urine Protein Negative (Neg-Trace) mg/dL Urine Glucose (UA) Normal (Normal) mg/dL - ABG Interpretation ABG results: PT/INR, D-dimer PT 25.0 Seconds (9.4-12.1) H 09/19/18 20:26 - Impressions Impressions Chest CT 09/19/18 22:14 IMPRESSION: Confluent right hilar mass with associated right midlung airspace disease most likely neoplastic. Infection not entirely excluded. Bilateral cavitary lesions, right larger than left may represent advanced neoplasm or infectious versus inflammatory process. Round opacity in the right mid lung exerts mass effect upon the right mainstem bronchus. Sternal and left 6th rib lesions suspicious for neoplasm versus sequela of prior trauma. D/ / 09/20/2018 07:16:51 [employer] / katelynn Interpreting Provider: [facility] Lumbar Spine CT 09/19/18 22:18 IMPRESSION: Age-indeterminate compression fractures of T5, T7, T8, L1, L2, and L3. Multilevel degenerative changes. D/ / 09/20/2018 07:18:01 [employer] / nani Interpreting Provider: [facility] Thoracic Spine CT 09/19/18 22:18 IMPRESSION: Age-indeterminate compression fractures of T5, T7, T8, L1, L2, and L3. Multilevel degenerative changes. D/ / 09/20/2018 07:18:01 [employer] / nani Interpreting Provider: Black [facility] Consult Discharge Plan - Plan Referrals: Carol Lee CNP [Primary Care Provider] -
--- NOTE | 2018-09-21 09:10 | Internal Med Progress Note ---
<Onesimo Winn F - Last Filed: 09/21/18 18:44> Hospitalist Progress Note - Encounter Date of Encounter: 09/21/18 Time of Encounter: 09:10 - Subjective Interval History: Ms. Frank was seen and evaluated at the bedside. Overnight the patient had no acute events. This morning she is complaining of some increased shortness of b reath. However she denies having any chest pain, palpitations, syncope, coughing, nausea, vomiting, fevers, chills. Patient only endorses increased shortness of breath with exertion, otherwise breathing well on 2 L nasal cannula. She otherwise denies any other new complaints or concerns at this t davidson. - Exam Vitals: Temp Pulse Resp BP Pulse Ox 98.1 F 68 15 123/73 94 09/21/18 07:03 09/21/18 07:03 09/21/18 07:03 09/21/18 07:03 09/21/18 07:03 Exam: GEN: Well-appearing, NAD, conversant. HEAD: Normocephalic, atraumatic. EYES: PERRL, EOMI, anicteric. ENT: MMM. oropharynx without erythema or drainage. NECK: Supple. No LAD. No stiffness or restricted ROM. No tracheal deviation. HEART: Regular rate and regular rhythm, normal S1/S2, no m/r/g. LUNGS: Diffuse crackles and wheezes in all lung kerr ABDO: Soft, nontender, nondistended with active bowel sounds. : No suprapubic tenderness or CVA tenderness. BACK: No obvious stepoffs or deformities. EXT: Without cyanosis, clubbing or edema. Trace pitting edema of the left lower extremity. SKIN: Warm and dry without any rash. NEURO: Grossly nonfocal. Alert and oriented, moving all 4 extremities. CN not formally tested but appear grossly intact. PSYCH: normal affect, no depressed or anxious mood. DVT Prophylaxis: Heparin GTT - Summary of Assessment and Plan Summary of Assessment and Plan: ASSESSMENT AND PLAN: (1) Left lower extremity DVT Outpatient ultrasound was significant for extensive DVT of the left lower extremity, including the left femoral and iliac vessels. The patient was initially trialed on an outpatient therapy with Xarelto; however, this was unsuccessful due to noncompliance with therapy. - Continue heparin gtt. - Continuous pulse oximetry and cardiac monitoring. - Called [facility] regarding outpatient anticoagulation therapy. (2) ARANZA Resolved. Initial serum creatinine noted to be elevated at 1.34, which did impro ve to 1.14 after administration of 1 L IVF. Suspect secondary to poor oral intake. - Continue to monitor and trend daily serum creatinine. - Encourage adequate PO intake. (3) Hypokalemia Patient noted to be significantly hypokalemic on initial laboratory studies at 2.8. She did receive oral potassium supplementation, with repeat improved at 3.3. Magnesium was noted to be low normal at 1.6. - Potassium repleted this morning with 40 mEq by mouth. - Magnesium was repleted with 2 g IV. - Repeat laboratory studies in AM. (4) Acute on chronic anemia Unclear etiology, possibly related to initiation of heparin drip. Hemoglobin and hematocrit relatively stable at 8.8 today. - Continue to monitor and trend hemoglobin and hematocrit. Type and screen completed. - Urinalysis and fecal occult blood test negative. (5) Frequent falls Patient reports frequent falls at home, and did have a recent fall during which she struck her head. CT imaging in the emergency department did not demonstrate any acute intracranial abnormalities; however, multiple thoracic and lumbar compression fractures were noted. - Continue fall precautions. - Occupational and physical therapy consults recommended SNF placement. (6) Leukocytosis Unclear etiology. Patient noted to have elevated WBC of 12.7; however, she is afebrile and has no apparent source of infection. - WBC of 12.3 today. - Continue to monitor and trend daily laboratory studies. - Urinalysis with no signs of infection. (7) Compression fractures CT imaging demonstrated multiple compression fractures as well as degenerative changes throughout the thoracic and lumbar spine. - Continue home analgesic regimen. (8) Diabetes mellitus - Accuchecks and low-dose SSI ACHS. (9) Lung cancer - Patient feeling more acutely short of breath, however still maintaining sats on 2 L. - Starting duo nebs scheduled every 6 hours. - Known history of lung cancer. Patient follows with [facility] oncology. (10) Tobacco abuse - Tobacco cessation encouraged. - Time Spent with Patient Total time spent is greater than 50% in coordination of care (as documented) at patient's floor/unit and/or counseling patient: less than 15 minutes Plan of Care Discussed with: patient Internal Medicine: Result - Labs CBC & Chem 7: 09/21/18 09:18 09/21/18 04:35 Labs: Short CBC 09/20/18 09/20/18 09/21/18 Range/Units 14:07 21:06 05:34 WBC 11.5 H (4.3-11.1) K/mcL Hgb 9.0 L 8.9 L 7.5 L (11.5-15.4) g/dL Hct 30.3 L 30.3 L 24.9 L (35.3-44.9) % Plt Count 198 (140-400) K/mcL Neutrophils # 9.4 H (1.6-8.9) K/mcL BMP 09/21/18 04:35 Sodium 137 Potassium 3.4 L Chloride 106 Carbon Dioxide 22 L BUN 20 Creatinine 0.68 Glucose 102 Calcium 8.9 Urine 09/20/18 Range/Units 21:30 Urine Color Yellow (Yellow) Urine Clarity Clear (Clear) Urine pH 6.0 (5.0-8.0) pH Units Ur Specific [place] 1.014 (1.010-1.025) Urine Protein Negative (Neg-Trace) mg/dL Urine Glucose (UA) Normal (Normal) mg/dL - ABG Interpretation ABG results: PT/INR, D-dimer PT 25.0 Seconds (9.4-12.1) H 09/19/18 20:26 - Impressions Impressions Chest CT 09/19/18 22:14 IMPRESSION: Confluent right hilar mass with associated right midlung airspace disease most likely neoplastic. Infection not entirely excluded. Bilateral cavitary lesions, right larger than left may represent advanced neoplasm or infectious versus inflammatory process. Round opacity in the right mid lung exerts mass effect upon the right mainstem bronchus. Sternal and left 6th rib lesions suspicious for neoplasm versus sequela of prior trauma. D/ /20/2018 07:16:51 Black Brand / katelynn Interpreting Provider: Black Brand Lumbar Spine CT 09/19/18 22:18 IMPRESSION: Age-indeterminate compression fractures of T5, T7, T8, L1, L2, and L3. Multilevel degenerative changes. D/ : / 09/20/2018 07:18:01 Black cardoza Interpreting Provider: Black Brand Thoracic Spine CT 09/19/18 22:18 IMPRESSION: Age-indeterminate compression fractures of T5, T7, T8, L1, L2, and L3. Multilevel degenerative changes. D/ / 09/20/2018 07:18:01 Black cardoza Interpreting Provider: Black Brand Consult Discharge Plan - Plan Referrals: Carol Lee, [employer] [Primary Care Provider] - <Ry Can - Last Filed: 09/21/18 19:18> Hospitalist Progress Note - Encounter Date of Encounter: 09/21/18 - Exam Vitals: Temp Pulse Resp BP Pulse Ox 98.1 F 78 16 111/73 94 09/21/18 14:08 09/21/18 14:08 09/21/18 15:39 09/21/18 14:08 09/21/18 15:39 - Assessment and Plan (1) Frequent falls Current Visit: Yes Status: Chronic (2) Increased white blood cell count Current Visit: Yes Status: Acute (3) DVT (deep venous thrombosis) Current Visit: Yes Status: Acute (4) Hypokalemia Current Visit: Yes Status: Acute (5) Acute kidney failure Current Visit: Yes Status: Acute (6) Tobacco abuse Current Visit: Yes Status: Chronic (7) Thoracic compression fracture Current Visit: Yes Status: Acute (8) Lumbar compression fracture Current Visit: Yes Status: Acute (9) Diabetes mellitus Current Visit: Yes Status: Chronic - Time Spent with Patient Total time spent is greater than 50% in coordination of care (as documented) at patient's floor/unit and/or counseling patient: Internal Medicine: Result - Labs CBC & Chem 7: 09/21/18 09:18 09/21/18 04:35 Labs: Short CBC 09/20/18 09/21/18 09/21/18 Range/Units 21:06 05:34 09:18 WBC 11.5 H 12.3 H (4.3-11.1) K/mcL Hgb 8.9 L 7.5 L 8.8 L (11.5-15.4) g/dL Hct 30.3 L 24.9 L 29.9 L (35.3-44.9) % Plt Count 198 226 (140-400) K/mcL Neutrophils # 9.4 H 10.2 H (1.6-8.9) K/mcL BMP 09/21/18 04:35 Sodium 137 Potassium 3.4 L Chloride 106 Carbon Dioxide 22 L BUN 20 Creatinine 0.68 Glucose 102 Calcium 8.9 Urine 09/20/18 Range/Units 21:30 Urine Color Yellow (Yellow) Urine Clarity Clear (Clear) Urine pH 6.0 (5.0-8.0) pH Units Ur Specific [place] 1.014 (1.010-1.025) Urine Protein Negative (Neg-Trace) mg/dL Urine Glucose (UA) Normal (Normal) mg/dL - ABG Interpretation ABG results: PT/INR, D-dimer PT 25.0 Seconds (9.4-12.1) H 09/19/18 20:26 - Impressions Impressions Chest CT 09/19/18 22:14 IMPRESSION: Confluent right hilar mass with associated right midlung airspace disease most likely neoplastic. Infection not entirely excluded. Bilateral cavitary lesions, right larger than left may represent advanced neoplasm or infectious versus inflammatory process. Round opacity in the right mid lung exerts mass effect upon the right mainstem bronchus. Sternal and left 6th rib lesions suspicious for neoplasm versus sequela of prior trauma. D/ 09/20/2018 07:16:51 Black Brand / katelynn Interpreting Provider: Black Brand Lumbar Spine CT 09/19/18 22:18 IMPRESSION: Age-indeterminate compression fractures of T5, T7, T8, L1, L2, and L3. Multilevel degenerative changes. D/ 09/20/2018 07:18:01 Black Brand / nani Interpreting Provider: Black Brand Thoracic Spine CT 09/19/18 22:18 IMPRESSION: Age-indeterminate compression fractures of T5, T7, T8, L1, L2, and L3. Multilevel degenerative changes. D/ / 09/20/2018 07:18:01 Black Brand / nani Interpreting Provider: Black Brand - Attending Attestation I examined this patient and my medical decision-making was reviewed with the Resident Physician on 09/21/18. I agree with the documented findings, disposition and treatment plan as described except to the extent set forth below. Ms Frank is currently admitted for acute DVT. She remains moderate to high risk due to potential for worsening clinical status. Ms Frank is feeling OK. Still on IV heparin. Xarelto was expensive. No fever or chills. Exam: Alert. Comfortable. NC. Mucus membranes dry. Heart not tachy. No wheeze. Abd soft. Plan: Continue heparin. Check clemente of PO meds. Continue onc at [facility]. <Ry Can - Last Filed: 09/21/18 19:18> (2) Increased white blood cell count Qualifiers: Leukocytosis type: unspecified Qualified Code(s): D72.829 - Elevated white blood cell count, unspecified (3) DVT (deep venous thrombosis) Qualifiers: DVT location: lower extremity Affected thrombotic vein of extremity: iliac Laterality: left Qualified Code(s): I82.422 - Acute embolism and thrombosis of left iliac vein (5) Acute kidney failure Qualifiers: Acute renal failure type: unspecified Qualified Code(s): N17.9 - Acute kidney failure, unspecified (7) Thoracic compression fracture Qualifiers: Encounter type: subsequent encounter Thoracic vertebra fracture level: unspecified thoracic vertebra Fracture healing: with routine healing Qualified Code(s): S22.000D - Wedge compression fracture of unspecified thoracic vertebra, subsequent encounter for fracture with routine healing (8) Lumbar compression fracture Qualifiers: Encounter type: subsequent encounter Lumbar vertebra fracture level: unspecified lumbar vertebra Fracture healing: with routine healing Qualified Code(s): S32.000D - Wedge compression fracture of unspecified lumbar vertebra, subsequent encounter for fracture with routine healing (9) Diabetes mellitus Qualifiers: Diabetes mellitus type: type 2 Diabetes mellitus intermodal dispatcher insulin use: without intermodal dispatcher use Diabetes mellitus complication status: without complication Qualified Code(s): E11.9 - Type 2 diabetes mellitus without complications
[2018-09-21 09:32] LABS: Basophils % 0.2 %; Eosinophils # 0.1 K/mcL (0.0-0.6); Eosinophils % 0.9 %; Hematocrit 29.9 % (35.3-44.9); Hemoglobin 8.8 g/dL (11.5-15.4); Immature Granulocytes % 1.1 % (0-4); Lymphocytes # 1.4 K/mcL (0.6-4.6); Lymphocytes % 11.1 %; Mean Corpuscular HGB Conc 29.4 g/dL (31.6-35.5); Mean Corpuscular Hemoglobin 28.3 pg (28.0-33.3); Mean Corpuscular Volume 96.1 fL (83.0-100.0); Mean Platelet Volume 10.1 fL (9.4-12.4); Monocytes # 0.4 K/mcL (0.0-1.3); Monocytes % 3.6 %; Neutrophils # 10.2 K/mcL (1.6-8.9); Platelet Count 226 K/mcL (140-400); Red Blood Count 3.11 M/mcL (3.82-4.97); Red Cell Distribution Width 19.1 % (11.5-14.5); Segmented Neutrophils % 83.1 %; White Blood Count 12.3 K/mcL (4.3-11.1)
[2018-09-21] MEDS: Lisinopril 20 MG TABLET PO SCH (10:16)
[2018-09-21] MEDS: amLODIPine 5 MG TABLET PO SCH (10:17)
[2018-09-21] MEDS: Ipratropium/Albuterol Neb 3 ML IH SCH ×3 (13:15→22:26)
[2018-09-21] MEDS: *HR* HYDROcodone/Acet 5/325 mg TABLET PO PRN (20:36)
[2018-09-22] MEDS: Ipratropium/Albuterol Neb 3 ML IH SCH ×4 (03:56→22:30)
[2018-09-22 05:11] LABS: Basophils % 0.1 %; Eosinophils # 0.1 K/mcL (0.0-0.6); Eosinophils % 0.7 %; Hematocrit 27.6 % (35.3-44.9); Hemoglobin 8.1 g/dL (11.5-15.4); Immature Granulocytes % 1.4 % (0-4); Lymphocytes # 1.9 K/mcL (0.6-4.6); Lymphocytes % 15.2 %; Mean Corpuscular HGB Conc 29.3 g/dL (31.6-35.5); Mean Corpuscular Hemoglobin 28.1 pg (28.0-33.3); Mean Corpuscular Volume 95.8 fL (83.0-100.0); Mean Platelet Volume 10.1 fL (9.4-12.4); Monocytes # 0.5 K/mcL (0.0-1.3); Monocytes % 4.1 %; Neutrophils # 9.7 K/mcL (1.6-8.9); Platelet Count 231 K/mcL (140-400); Red Blood Count 2.88 M/mcL (3.82-4.97); Red Cell Distribution Width 19.1 % (11.5-14.5); Segmented Neutrophils % 78.5 %; White Blood Count 12.3 K/mcL (4.3-11.1)
[2018-09-22 05:28] LABS: BUN/Creatinine Ratio 22 (6-26); Blood Urea Nitrogen 15 mg/dL (8-23); Carbon Dioxide 25 mEq/L (23-29); Chloride 103 mEq/L (98-107); Glucose 107 mg/dL (70-105); Osmolality,Calculated 291 (280-300); Potassium 3.1 mEq/L (3.5-5.1); Sodium 140 mEq/L (136-145); eGFR For African Americans > 60 (> 60); eGFR For Non-African Americans > 60 (> 60)
[2018-09-22] MEDS: Insulin LISPRO 300 UNITS/3 ML VIAL SQ SCH ×3 (07:50→19:11)
--- NOTE | 2018-09-22 07:51 | Internal Med Progress Note ---
<Ry Can - Last Filed: 09/22/18 16:25> Hospitalist Progress Note - Encounter Date of Encounter: 09/22/18 - Exam Vitals: Temp Pulse Resp BP Pulse Ox 98.4 F 96 12 107/69 93 09/22/18 14:50 09/22/18 14:50 09/22/18 15:29 09/22/18 14:50 09/22/18 15:29 - Assessment and Plan (1) Frequent falls Current Visit: Yes Status: Chronic (2) Increased white blood cell count Current Visit: Yes Status: Acute (3) DVT (deep venous thrombosis) Current Visit: Yes Status: Acute (4) Hypokalemia Current Visit: Yes Status: Acute (5) Acute kidney failure Current Visit: Yes Status: Acute (6) Tobacco abuse Current Visit: Yes Status: Chronic (7) Thoracic compression fracture Current Visit: Yes Status: Acute (8) Lumbar compression fracture Current Visit: Yes Status: Acute (9) Diabetes mellitus Current Visit: Yes Status: Chronic - Time Spent with Patient Total time spent is greater than 50% in coordination of care (as documented) at patient's floor/unit and/or counseling patient: Internal Medicine: Result - Labs CBC & Chem 7: 09/22/18 04:32 09/22/18 04:32 Labs: Short CBC 09/22/18 Range/Units 04:32 WBC 12.3 H (4.3-11.1) K/mcL Hgb 8.1 L (11.5-15.4) g/dL Hct 27.6 L (35.3-44.9) % Plt Count 231 (140-400) K/mcL Neutrophils # 9.7 H (1.6-8.9) K/mcL BMP 09/22/18 04:32 Sodium 140 Potassium 3.1 L Chloride 103 Carbon Dioxide 25 BUN 15 Creatinine 0.67 Glucose 107 H Calcium 9.0 - ABG Interpretation ABG results: PT/INR, D-dimer PT 25.0 Seconds (9.4-12.1) H 09/19/18 20:26 Consult Discharge Plan - Plan Referrals: Carol Lee, LINDSAY [Primary Care Provider] - Prescriptions: Rivaroxaban [Xarelto] 15 mg PO BID #42 tablet Rivaroxaban [Xarelto] 20 mg PO DAILY #30 tablet - Attending Attestation I examined this patient and my medical decision-making was reviewed with the Resident Physician on 09/22/18. I agree with the documented findings, disposition and treatment plan as described except to the extent set forth below. Ms Frank is currently admitted for acute DVT. She remains moderate to high risk due to potential for worsening clinical status. Ms Frank is resting. She denies any complaints to me at this time. No fever or chills. Exam: Alert. Comfortable. NC. Mucus membranes dry. Neck supple. Heart not tachy. No wheeze. Abd soft and nontender. Moves all extremities. No rash. Plan: Transition back to Xarelto from heparin drip. D/C planning - SNF. <Onesimo Winn F - Last Filed: 09/22/18 16:41> Hospitalist Progress Note - Encounter Date of Encounter: 09/22/18 Time of Encounter: 07:51 - Subjective Interval History: Patient was seen and examined at bedside. No acute events overnight. This morning patient is complaining of mildly increased chest pain and shortness of breath is unchanged. Denies nausea, vomiting, fevers, chills. Had a discussion with the patient regarding taking xarelto versus warfarin for anticoagulation. Patient is agreeable to both depending on clemente. Otherwise patient has been eating and drinking well. No issues with urination or bowel movements. - Exam Vitals: Temp Pulse Resp BP Pulse Ox 97.9 F 58 15 151/81 96 09/22/18 06:41 09/22/18 06:41 09/22/18 06:41 09/22/18 06:41 09/22/18 06:41 Exam: GEN: Well-appearing, NAD, conversant. HEAD: Normocephalic, atraumatic. EYES: PERRL, EOMI, anicteric. ENT: MMM. oropharynx without erythema or drainage. NECK: Supple. No LAD. No stiffness or restricted ROM. No tracheal deviation. HEART: Regular rate and regular rhythm, normal S1/S2, no m/r/g. Chest wall nontender to palpation. LUNGS: Diffuse crackles and wheezes in all lung kerr ABDO: Soft, nontender, nondistended with active bowel sounds. : No suprapubic tenderness or CVA tenderness. BACK: No obvious stepoffs or deformities. EXT: Without cyanosis, clubbing or edema. Trace pitting edema of the left lower extremity. SKIN: Warm and dry without any rash. NEURO: Grossly nonfocal. Alert and oriented, moving all 4 extremities. CN not formally tested but appear grossly intact. PSYCH: Normal affect, no depressed or anxious mood. DVT Prophylaxis: Heparin GTT - Summary of Assessment and Plan Summary of Assessment and Plan: ASSESSMENT AND PLAN: (1) Left lower extremity DVT Outpatient ultrasound was significant for extensive DVT of the left lower extremity, including the left femoral and iliac vessels. The patient was initially trialed on an outpatient therapy with Xarelto; however, this was unsuccessful due to noncompliance with therapy. - Called [facility] regarding outpatient anticoagulation therapy. - Continuous pulse oximetry and cardiac monitoring. - Discontinue heparin GTT. Started on Xarelto 15 mg twice a day. - Clemente check confirmed that patient can receive Xarelto free for the first 3 weeks, then $3.80 every month following. - Patient ready for discharge pending placement. (2) ARANZA Resolved. Initial serum creatinine noted to be elevated at 1.34, which did improve to 1.14 after administration of 1 L IVF. Suspect secondary to poor oral intake. - Continue to monitor and trend daily serum creatinine. Today BUN/creatinine 15 and 0.67 - Encourage adequate PO intake. (3) Hypokalemia Patient noted to be significantly hypokalemic on initial laboratory studies at 2.8. She did receive oral potassium supplementation, with repeat improved at 3.3. Magnesium was noted to be low normal at 1.6. - Potassium 3.1 today, repleted this morning with 40 mEq by mouth. - Magnesium was repleted with 2 g IV. - Repeat laboratory studies in AM. (4) Acute on chronic anemia Unclear etiology, possibly related to initiation of heparin drip. Hemoglobin and hematocrit relatively stable at 8.1 today. - Continue to monitor and trend hemoglobin and hematocrit. Type and screen compl eted. - Urinalysis and fecal occult blood test negative. (5) Frequent falls Patient reports frequent falls at home, and did have a recent fall during which she struck her head. CT imaging in the emergency department did not demonstrate any acute intracranial abnormalities; however, multiple thoracic and lumbar compression fractures were noted. - Continue fall precautions. - Occupational and physical therapy consults recommended SNF placement. (6) Leukocytosis Unclear etiology. Patient noted to have elevated WBC of 12.7; however, she is afebrile and has no apparent source of infection. - WBC of 12.3 today. - Continue to monitor and trend daily laboratory studies. - Urinalysis with no signs of infection. (7) Compression fractures CT imaging demonstrated multiple compression fractures as well as degenerative changes throughout the thoracic and lumbar spine. - Continue home analgesic regimen. (8) Diabetes mellitus - Accuchecks and low-dose SSI ACHS. (9) Lung cancer - Patient feeling more acutely short of breath, however still maintaining sats on 2 L. - Starting duo nebs scheduled every 6 hours. - Known history of lung cancer. Patient follows with [facility] oncology. (10) Tobacco abuse - Tobacco cessation encouraged. - Time Spent with Patient Total time spent is greater than 50% in coordination of care (as documented) at patient's floor/unit and/or counseling patient: less than 15 minutes Plan of Care Discussed with: patient Internal Medicine: Result - Labs CBC & Chem 7: 09/22/18 04:32 09/22/18 04:32 Labs: Short CBC 09/21/18 09/22/18 Range/Units 09:18 04:32 WBC 12.3 H 12.3 H (4.3-11.1) K/mcL Hgb 8.8 L 8.1 L (11.5-15.4) g/dL Hct 29.9 L 27.6 L (35.3-44.9) % Plt Count 226 231 (140-400) K/mcL Neutrophils # 10.2 H 9.7 H (1.6-8.9) K/mcL BMP 09/22/18 04:32 Sodium 140 Potassium 3.1 L Chloride 103 Carbon Dioxide 25 BUN 15 Creatinine 0.67 Glucose 107 H Calcium 9.0 - ABG Interpretation ABG results: PT/INR, D-dimer PT 25.0 Seconds (9.4-12.1) H 09/19/18 20:26 <Juan JoséBlairRy A - Last Filed: 09/22/18 16:25> (2) Increased white blood cell count Qualifiers: Leukocytosis type: unspecified Qualified Code(s): D72.829 - Elevated white blood cell count, unspecified (3) DVT (deep venous thrombosis) Qualifiers: DVT location: lower extremity Affected thrombotic vein of extremity: iliac Laterality: left Qualified Code(s): I82.422 - Acute embolism and thrombosis of left iliac vein (5) Acute kidney failure Qualifiers: Acute renal failure type: unspecified Qualified Code(s): N17.9 - Acute kidney failure, unspecified (7) Thoracic compression fracture Qualifiers: Encounter type: subsequent encounter Thoracic vertebra fracture level: unspec ified thoracic vertebra Fracture healing: with routine healing Qualified Code(s): S22.000D - Wedge compression fracture of unspecified thoracic vertebra, subsequent encounter for fracture with routine healing (8) Lumbar compression fracture Qualifiers: Encounter type: subsequent encounter Lumbar vertebra fracture level: unspecified lumbar vertebra Fracture healing: with routine healing Qualified Code(s): S32.000D - Wedge compression fracture of unspecified lumbar vertebra, subsequent encounter for fracture with routine healing (9) Diabetes mellitus Qualifiers: Diabetes mellitus type: type 2 Diabetes mellitus snf insulin use: without snf use Diabetes mellitus complication status: without complication Qualified Code(s): E11.9 - Type 2 diabetes mellitus without complications
[2018-09-22] MEDS: Lisinopril 20 MG TABLET PO SCH (09:44)
[2018-09-22] MEDS: amLODIPine 5 MG TABLET PO SCH (09:46)
[2018-09-22] MEDS: *HR* HYDROcodone/Acet 5/325 mg TABLET PO PRN (09:52)
[2018-09-22] MEDS: *HR* Rivaroxaban 15 MG TABLET PO SCH (16:02)
[2018-09-23 02:31] LABS: Basophils % 0.1 %; Eosinophils % 0.3 %; Hemoglobin 7.5 g/dL (11.5-15.4); Immature Granulocytes % 0.9 % (0-4); Lymphocytes # 1.3 K/mcL (0.6-4.6); Lymphocytes % 9.5 %; Mean Corpuscular Hemoglobin 28.1 pg (28.0-33.3); Mean Corpuscular Volume 93.6 fL (83.0-100.0); Mean Platelet Volume 9.8 fL (9.4-12.4); Monocytes # 0.5 K/mcL (0.0-1.3); Monocytes % 3.8 %; Neutrophils # 11.5 K/mcL (1.6-8.9); Platelet Count 218 K/mcL (140-400); Red Blood Count 2.67 M/mcL (3.82-4.97); Red Cell Distribution Width 19.1 % (11.5-14.5); Segmented Neutrophils % 85.4 %; White Blood Count 13.4 K/mcL (4.3-11.1)
[2018-09-23 02:49] LABS: BUN/Creatinine Ratio 19 (6-26); Blood Urea Nitrogen 15 mg/dL (8-23); Calcium 8.8 mg/dL (8.6-10.3); Carbon Dioxide 24 mEq/L (23-29); Chloride 106 mEq/L (98-107); Glucose 123 mg/dL (70-105); Osmolality,Calculated 290 (280-300); Sodium 139 mEq/L (136-145); eGFR For African Americans > 60 (> 60); eGFR For Non-African Americans > 60 (> 60)
[2018-09-23] MEDS: Ipratropium/Albuterol Neb 3 ML IH SCH ×4 (04:03→22:47)
[2018-09-23] MEDS: amLODIPine 5 MG TABLET PO SCH (08:13)
[2018-09-23] MEDS: Insulin LISPRO 300 UNITS/3 ML VIAL SQ SCH ×3 (08:14→16:33)
[2018-09-23] MEDS: Lisinopril 20 MG TABLET PO SCH (08:14)
[2018-09-23] MEDS: *HR* Rivaroxaban 15 MG TABLET PO SCH ×2 (08:14→16:33)
[2018-09-23] MEDS ORDERED: Potassium Chloride Elixir 20 MEQ/15 ML UDC PO ONE (08:43)
--- NOTE | 2018-09-23 08:44 | Internal Med Progress Note ---
<Ry Can - Last Filed: 09/23/18 15:40> Hospitalist Progress Note - Encounter Date of Encounter: 09/23/18 - Exam Vitals: Temp Pulse Resp BP Pulse Ox 100.3 F H 95 17 122/75 94 09/23/18 11:34 09/23/18 11:34 09/23/18 11:34 09/23/18 11:34 09/23/18 11:34 - Assessment and Plan (1) Frequent falls Current Visit: Yes Status: Chronic (2) Increased white blood cell count Current Visit: Yes Status: Acute (3) DVT (deep venous thrombosis) Current Visit: Yes Status: Acute (4) Hypokalemia Current Visit: Yes Status: Acute (5) Acute kidney failure Current Visit: Yes Status: Acute (6) Tobacco abuse Current Visit: Yes Status: Chronic (7) Thoracic compression fracture Current Visit: Yes Status: Acute (8) Lumbar compression fracture Current Visit: Yes Status: Acute (9) Diabetes mellitus Current Visit: Yes Status: Chronic - Time Spent with Patient Total time spent is greater than 50% in coordination of care (as documented) at patient's floor/unit and/or counseling patient: Internal Medicine: Result - Labs CBC & Chem 7: 09/23/18 11:29 09/23/18 01:59 Labs: Short CBC 09/23/18 09/23/18 Range/Units 01:59 11:29 WBC 13.4 H (4.3-11.1) K/mcL Hgb 7.5 L 8.2 L (11.5-15.4) g/dL Hct 25.0 L 26.9 L (35.3-44.9) % Plt Count 218 (140-400) K/mcL Neutrophils # 11.5 H (1.6-8.9) K/mcL BMP 09/23/18 01:59 Sodium 139 Potassium 3.0 L Chloride 106 Carbon Dioxide 24 BUN 15 Creatinine 0.78 Glucose 123 H Calcium 8.8 - ABG Interpretation ABG results: PT/INR, D-dimer PT 25.0 Seconds (9.4-12.1) H 09/19/18 20:26 Consult Discharge Plan - Plan Referrals: Carol Lee CNP [Primary Care Provider] - Prescriptions: Rivaroxaban [Xarelto] 15 mg PO BID #42 tablet Rivaroxaban [Xarelto] 20 mg PO DAILY #30 tablet - Attending Attestation I examined this patient and my medical decision-making was reviewed with the Resident Physician on 09/23/18. I agree with the documented findings, disposition and treatment plan as described except to the extent set forth below. Ms Frank is currently admitted for acute DVT. She remains moderate to high risk due to potential for worsening clinical status. Ms Frank is resting. She is tearful - really doesn't want to go to SNF but understands. No fever or chills. Tolerating Xarelto. Exam: Alert Comfortable. NC. EOMI. Mucus membranes dry. Heart not tachy. No wheeze. Abd soft. Moves all extremities. No rash. Plan: continue Xarelto. Working on d/c to SNF. <Onesimo Winn F - Last Filed: 09/23/18 16:01> Hospitalist Progress Note - Encounter Date of Encounter: 09/23/18 Time of Encounter: 08:44 - Subjective Interval History: Patient was seen and examined at bedside. Patient endorses feeling general malaise. Does not endorse any pain or increased shortness of breath. Otherwise doesn't have any other complaints. Denies n/v/f/c. Denies any problems urinating or constipation/diarrhea. Is resting comfortably. - Exam Vitals: Temp Pulse Resp BP Pulse Ox 98.6 F 91 17 133/77 96 09/23/18 07:31 09/23/18 07:31 09/23/18 07:31 09/23/18 07:31 09/23/18 07:31 Exam: GEN: Well-appearing, NAD, conversant. HEAD: Normocephalic, atraumatic. EYES: PERRL, EOMI, anicteric. ENT: MMM. oropharynx without erythema or drainage. NECK: Supple. No LAD. No stiffness or restricted ROM. No tracheal deviation. HEART: Regular rate and regular rhythm, normal S1/S2, no m/r/g. Chest wall nontender to palpation. LUNGS: Diffuse crackles and wheezes in all lung kerr. No WOB on RA. ABDO: Soft, nontender, nondistended with active bowel sounds. : No suprapubic tenderness or CVA tenderness. BACK: No obvious stepoffs or deformities. EXT: Without cyanosis, clubbing or edema. Trace pitting edema of the left lower extremity. SKIN: Warm and dry without any rash. NEURO: Grossly nonfocal. Alert and oriented, moving all 4 extremities. CN not formally tested but appear grossly intact. PSYCH: Normal affect, no depressed or anxious mood. - Assessment and Plan (1) DVT (deep venous thrombosis) Current Visit: Yes Status: Acute Assessment and Plan: (1) Left lower extremity DVT Outpatient ultrasound was significant for extensive DVT of the left lower extremity, including the left femoral and iliac vessels. The patient was initially trialed on an outpatient therapy with Xarelto; however, this was unsuccessful due to noncompliance with therapy. - Called [facility] regarding outpatient anticoagulation therapy. - Continuous pulse oximetry and cardiac monitoring. - Discontinue heparin GTT. Started on Xarelto 15 mg twice a day. - [facility] check confirmed that patient can receive Xarelto free for the first 3 weeks, then $3.80 every month following. - Patient ready for discharge pending placement. (2) Acute kidney failure Current Visit: Yes Status: Resolved Assessment and Plan: Resolved. Initial serum creatinine noted to be elevated at 1.34, which did i mprove to 1.14 after administration of 1 L IVF. Suspect secondary to poor oral intake. - Continue to monitor and trend daily serum creatinine. - Encourage adequate PO intake. (3) Hypokalemia Current Visit: Yes Status: Acute Assessment and Plan: Patient noted to be significantly hypokalemic on initial laboratory studies at 2.8. She did receive oral potassium supplementation, with repeat improved at 3 .3. Magnesium was noted to be low normal at 1.6. - Potassium 3.1 today, repleted this morning with 40 mEq by mouth. - Since patient has been consistently hypokalemic every day, will start schedule KCl 40mEq PO every day - Magnesium was repleted with 2 g IV. - Repeat laboratory studies in AM. (4) Anemia Current Visit: Yes Status: Acute Assessment and Plan: Unclear etiology, possibly related to initiation of heparin drip. Hemoglobin and hematocrit relatively stable at 7.6 today. - Continue to monitor and trend hemoglobin and hematocrit. Type and screen completed. - Urinalysis and fecal occult blood test negative. (5) Frequent falls Current Visit: Yes Status: Chronic Assessment and Plan: Patient reports frequent falls at home, and did have a recent fall during which she struck her head. CT imaging in the emergency department did not demonstrate any acute intracranial abnormalities; however, multiple thoracic and lumbar compression fractures were noted. - Continue fall precautions. - Occupational and physical therapy consults recommended SNF placement. (6) Increased white blood cell count Current Visit: Yes Status: Acute Assessment and Plan: Unclear etiology. Patient noted to have elevated WBC of 12.7; however, she is afebrile and has no apparent source of infection. - WBC of 12.3 today. - Continue to monitor and trend daily laboratory studies. - Urinalysis with no signs of infection. (7) Compression fracture Current Visit: Yes Status: Acute Assessment and Plan: CT imaging demonstrated multiple compression fractures as well as degenerative changes throughout the thoracic and lumbar spine. - Continue home analgesic regimen. (8) Diabetes mellitus Current Visit: Yes Status: Chronic Assessment and Plan: - Accuchecks and low-dose SSI ACHS. (9) Lung cancer Current Visit: Yes Status: Acute Assessment and Plan: - Patient feeling more acutely short of breath, however still maintaining sats on 2 L. - Starting duo nebs scheduled every 6 hours. - Known history of lung cancer. Patient follows with [facility] oncology. (10) Tobacco abuse Current Visit: Yes Status: Chronic Assessment and Plan: - Tobacco cessation encouraged. DVT Prophylaxis: Heparin GTT - Time Spent with Patient Total time spent is greater than 50% in coordination of care (as documented) at patient's floor/unit and/or counseling patient: less than 15 minutes Plan of Care Discussed with: patient Internal Medicine: Result - Labs CBC & Chem 7: 09/23/18 11:29 09/23/18 01:59 Labs: Short CBC 09/23/18 Range/Units 01:59 WBC 13.4 H (4.3-11.1) K/mcL Hgb 7.5 L (11.5-15.4) g/dL Hct 25.0 L (35.3-44.9) % Plt Count 218 (140-400) K/mcL Neutrophils # 11.5 H (1.6-8.9) K/mcL BMP 09/23/18 01:59 Sodium 139 Potassium 3.0 L Chloride 106 Carbon Dioxide 24 BUN 15 Creatinine 0.78 Glucose 123 H Calcium 8.8 - ABG Interpretation ABG results: PT/INR, D-dimer PT 25.0 Seconds (9.4-12.1) H 09/19/18 20:26 <Ry Can - Last Filed: 09/23/18 15:40> (2) Increased white blood cell count Qualifiers: Leukocytosis type: unspecified Qualified Code(s): D72.829 - Elevated white blood cell count, unspecified (3) DVT (deep venous thrombosis) Qualifiers: DVT location: lower extremity Affected thrombotic vein of extremity: iliac Laterality: left Qualified Code(s): I82.422 - Acute embolism and thrombosis of left iliac vein (5) Acute kidney failure Qualifiers: Acute renal failure type: unspecified Qualified Code(s): N17.9 - Acute kidney failure, unspecified (7) Thoracic compression fracture Qualifiers: Encounter type: subsequent encounter Thoracic vertebra fracture level: unspecified thoracic vertebra Fracture healing: with routine healing Qualified Code(s): S22.000D - Wedge compression fracture of unspecified thoracic vertebra, subsequent encounter for fracture with routine healing (8) Lumbar compression fracture Qualifiers: Encounter type: subsequent encounter Lumbar vertebra fracture level: unspecified lumbar vertebra Fracture healing: with routine healing Qualified Code(s): S32.000D - Wedge compression fracture of unspecified lumbar vertebra, subsequent encounter for fracture with routine healing (9) Diabetes mellitus Qualifiers: Diabetes mellitus type: type 2 Diabetes mellitus technician terminal and repeater insulin use: without longterm use Diabetes mellitus complication status: without complication Qualified Code(s): E11.9 - Type 2 diabetes mellitus without complications <Onesimo Winn - Last Filed: 09/23/18 16:01> (1) DVT (deep venous thrombosis) Qualifiers: DVT location: lower extremity Affected thrombotic vein of extremity: iliac Laterality: left Qualified Code(s): I82.422 - Acute embolism and thrombosis of left iliac vein (2) Acute kidney failure Qualifiers: Acute renal failure type: unspecified Qualified Code(s): N17.9 - Acute kidney failure, unspecified (4) Anemia Qualifiers: Anemia type: unspecified type Qualified Code(s): D64.9 - Anemia, unspecified (6) Increased white blood cell count Qualifiers: Leukocytosis type: unspecified Qualified Code(s): D72.829 - Elevated white blood cell count, unspecified (8) Diabetes mellitus Qualifiers: Diabetes mellitus type: type 2 Diabetes mellitus technician terminal and repeater insulin use: without technician terminal and repeater use Diabetes mellitus complication status: without complication Qualified Code(s): E11.9 - Type 2 diabetes mellitus without complications
[2018-09-23 11:45] LABS: Hematocrit 26.9 % (35.3-44.9); Hemoglobin 8.2 g/dL (11.5-15.4)
[2018-09-23] MEDS: *HR* HYDROcodone/Acet 5/325 mg TABLET PO PRN (22:17)
[2018-09-24] MEDS: Ipratropium/Albuterol Neb 3 ML IH SCH ×4 (04:04→22:21)
[2018-09-24] MEDS: Insulin LISPRO 300 UNITS/3 ML VIAL SQ SCH ×3 (08:18→16:37)
[2018-09-24] MEDS: *HR* Rivaroxaban 15 MG TABLET PO SCH ×2 (08:38→18:27)
[2018-09-24] MEDS: Lisinopril 20 MG TABLET PO SCH (08:38)
[2018-09-24] MEDS: amLODIPine 5 MG TABLET PO SCH (08:38)
[2018-09-24 08:41] LABS: Basophils % 0.2 %; Eosinophils # 0.1 K/mcL (0.0-0.6); Eosinophils % 0.9 %; Hematocrit 26.6 % (35.3-44.9); Hemoglobin 8.2 g/dL (11.5-15.4); Lymphocytes # 1.4 K/mcL (0.6-4.6); Lymphocytes % 10.6 %; Mean Corpuscular HGB Conc 30.8 g/dL (31.6-35.5); Mean Corpuscular Hemoglobin 28.5 pg (28.0-33.3); Mean Corpuscular Volume 92.4 fL (83.0-100.0); Mean Platelet Volume 10.1 fL (9.4-12.4); Monocytes # 0.6 K/mcL (0.0-1.3); Monocytes % 4.6 %; Neutrophils # 10.7 K/mcL (1.6-8.9); Platelet Count 213 K/mcL (140-400); Red Blood Count 2.88 M/mcL (3.82-4.97); Red Cell Distribution Width 19.3 % (11.5-14.5); Segmented Neutrophils % 82.7 %; White Blood Count 12.9 K/mcL (4.3-11.1)
[2018-09-24] MEDS ORDERED: Potassium Chloride Elixir 20 MEQ/15 ML UDC PO SCH (09:00)
[2018-09-24 09:20] LABS: BUN/Creatinine Ratio 20 (6-26); Blood Urea Nitrogen 12 mg/dL (8-23); Calcium 9.2 mg/dL (8.6-10.3); Carbon Dioxide 21 mEq/L (23-29); Chloride 107 mEq/L (98-107); Glucose 97 mg/dL (70-105); Osmolality,Calculated 288 (280-300); Potassium 4.1 mEq/L (3.5-5.1); Sodium 139 mEq/L (136-145); eGFR For African Americans > 60 (> 60); eGFR For Non-African Americans > 60 (> 60)
[2018-09-24] MEDS ORDERED: tiZANidine 4 MG TABLET PO PRN (10:15)
--- NOTE | 2018-09-24 10:15 | Internal Med Progress Note ---
Hospitalist Progress Note - Encounter Date of Encounter: 09/24/18 Time of Encounter: 10:00 - Subjective Interval History: Ms Frank is currently admitted for acute DVT. She remains moderate to high risk due to potential for worsening clinical status. Ms Frank is feeling somewhat more dyspneic today. Wheezing. No chest pain. No diarrhea. H/H stable overnight. Waiting insurance approval for SNF. - Exam Vitals: Temp Pulse Resp BP Pulse Ox 98.2 F 83 17 154/83 97 09/24/18 08:00 09/24/18 08:00 09/24/18 08:00 09/24/18 08:00 09/24/18 08:00 Exam: General: Alert and oriented. Comfortable at this time. Skin: No rash. H: Normocephalic. EENT: EOMI, Mucus membranes moist. Cardiovascular: Normal S1 & S2, no murmurs Pulse regular. Not tachycardic Lungs: Wheezing bilaterally. No rales or rhonchi. Abdomen: Soft, non-tender, Normal bowel sounds. Extremities: Moderate OA. No edema. Neurological: Normal cognition and motor skills. Pulses: radial pulses normal +2. Rest of the physical exam is non contributory - Assessment and Plan (1) DVT (deep venous thrombosis) Current Visit: Yes Status: Acute Assessment and Plan: Pt admitted with extensive DVT of L leg. Initially on heparin drip and now Xarelto. Continue monitoring. (2) Frequent falls Current Visit: Yes Status: Chronic Assessment and Plan: Agrees to go to SNF. (3) Increased white blood cell count Current Visit: Yes Status: Acute Assessment and Plan: Continue to monitor. Expect this is related to cancer. (4) Hypokalemia Current Visit: Yes Status: Acute Assessment and Plan: Resolved today. Will restart home dose of Spirinolactone. Recheck tomorrow. (5) Tobacco abuse Current Visit: Yes Status: Chronic Assessment and Plan: Cessation counselling. (6) Thoracic compression fracture Current Visit: Yes Status: Acute Assessment and Plan: Stable at this time. Follow (7) Lumbar compression fracture Current Visit: Yes Status: Acute Assessment and Plan: Plan as stated above. (8) Diabetes mellitus Current Visit: Yes Status: Chronic Assessment and Plan: Sliding scale insulin ordered. Accuchecks ACHS. Diabetic diet. Hold home medications. Controlled at this time. - Time Spent with Patient Total time spent is greater than 50% in coordination of care (as documented) at patient's floor/unit and/or counseling patient: Internal Medicine: Result - Labs CBC & Chem 7: 09/24/18 08:30 09/24/18 08:30 Labs: Short CBC 09/23/18 09/24/18 Range/Units 11:29 08:30 WBC 12.9 H (4.3-11.1) K/mcL Hgb 8.2 L 8.2 L (11.5-15.4) g/dL Hct 26.9 L 26.6 L (35.3-44.9) % Plt Count 213 (140-400) K/mcL Neutrophils # 10.7 H (1.6-8.9) K/mcL BMP 09/24/18 08:30 Sodium 139 Potassium 4.1 Chloride 107 Carbon Dioxide 21 L BUN 12 Creatinine 0.61 Glucose 97 Calcium 9.2 - ABG Interpretation ABG results: PT/INR, D-dimer PT 25.0 Seconds (9.4-12.1) H 09/19/18 20:26 Consult Discharge Plan - Plan Referrals: Carol Lee, [facility] [Primary Care Provider] - Prescriptions: Rivaroxaban [Xarelto] 15 mg PO BID #42 tablet Rivaroxaban [Xarelto] 20 mg PO DAILY #30 tablet (1) DVT (deep venous thrombosis) Qualifiers: DVT location: lower extremity Affected thrombotic vein of extremity: iliac Laterality: left Qualified Code(s): I82.422 - Acute embolism and thrombosis of left iliac vein (3) Increased white blood cell count Qualifiers: Leukocytosis type: unspecified Qualified Code(s): D72.829 - Elevated white blood cell count, unspecified (6) Thoracic compression fracture Qualifiers: Encounter type: subsequent encounter Thoracic vertebra fracture level: unspecified thoracic vertebra Fracture healing: with routine healing Qualified Code(s): S22.000D - Wedge compression fracture of unspecified thoracic vertebra, subsequent encounter for fracture with routine healing (7) Lumbar compression fracture Qualifiers: Encounter type: subsequent encounter Lumbar vertebra fracture level: unspecified lumbar vertebra Fracture healing: with routine healing Qualified Code(s): S32.000D - Wedge compression fracture of unspecified lumbar vertebra, subsequent encounter for fracture with routine healing (8) Diabetes mellitus Qualifiers: Diabetes mellitus type: type 2 Diabetes mellitus terminal supervisor insulin use: without fpc use Diabetes mellitus complication status: without complication Qualified Code(s): E11.9 - Type 2 diabetes mellitus without complications
[2018-09-24] MEDS: *HR* HYDROcodone/Acet 5/325 mg TABLET PO PRN (15:12)
[2018-09-24] MEDS: Pramoxine 15 GM FOAM Package TP SCH ×2 (15:30→20:01)
[2018-09-24] MEDS: Famotidine 20 MG TABLET PO SCH (18:27)
[2018-09-24] MEDS: Budesonide/Formoterol 80/4.5 1 PUFF INH IH SCH (22:21)
[2018-09-24] MEDS ORDERED: Ipratropium/Albuterol Neb 3 ML IH PRN (22:33)
[2018-09-25] MEDS: *HR* HYDROcodone/Acet 5/325 mg TABLET PO PRN ×3 (04:32→20:37)
[2018-09-25] MEDS: Budesonide/Formoterol 80/4.5 1 PUFF INH IH SCH ×2 (08:07→19:39)
[2018-09-25] MEDS: Insulin LISPRO 300 UNITS/3 ML VIAL SQ SCH ×3 (08:12→17:59)
[2018-09-25] MEDS: amLODIPine 5 MG TABLET PO SCH (08:19)
[2018-09-25] MEDS: Lisinopril 20 MG TABLET PO SCH (08:19)
[2018-09-25] MEDS: *HR* Rivaroxaban 15 MG TABLET PO SCH ×2 (08:19→16:41)
[2018-09-25] MEDS: Famotidine 20 MG TABLET PO SCH ×2 (08:22→16:41)
[2018-09-25] MEDS ORDERED: Spironolactone 25 MG TABLET PO SCH (09:00)
[2018-09-25] MEDS ORDERED: *HR* Rivaroxaban 10 MG TABLET PO SCH (09:00)
--- NOTE | 2018-09-25 10:19 | Internal Med Progress Note ---
Hospitalist Progress Note - Encounter Date of Encounter: 09/25/18 Time of Encounter: 10:00 - Subjective Interval History: Ms Frank is currently admitted for acute DVT. She remains moderate risk at this time. Ms Frank feels oK. No fever or chills. No CP or SOB today. Tolerating PO Xarelto. H/H stable. No bleeding noted. - Exam Vitals: Temp Pulse Resp BP Pulse Ox 98.1 F 100 20 151/86 97 09/25/18 04:44 09/25/18 04:44 09/25/18 04:44 09/25/18 04:44 09/25/18 04:44 Exam: General: Alert and oriented. Comfortable at this time. Resting in bed. Skin: No rash. Good turgor. H: Normocephalic. EENT: EOMI, Mucus membranes moist. Cardiovascular: Normal S1 & S2, no murmurs No tachycardia. Regular. Lungs: No wheeze today. No rales or rhonchi. Abdomen: Soft, non-tender, Normal bowel sounds. Extremities: Moderate OA. No edema. Neurological: Normal cognition and motor skills. Pulses: radial pulses normal +2. Rest of the physical exam is non contributory - Assessment and Plan (1) DVT (deep venous thrombosis) Current Visit: Yes Status: Acute Assessment and Plan: Pt admitted with extensive DVT of L leg. Initially on heparin drip and now Xarelto. Tolerating well at this time. (2) Frequent falls Current Visit: Yes Status: Chronic Assessment and Plan: Agrees to go to SNF. Awaiting arrangements. (3) Increased white blood cell count Current Visit: Yes Status: Acute Assessment and Plan: Continue to monitor. Expect this is related to cancer. No new issues. (4) Hypokalemia Current Visit: Yes Status: Acute Assessment and Plan: Resolved today. Home Spirinolactone restarted. May need small dose daily K. (5) Tobacco abuse Current Visit: Yes Status: Chronic Assessment and Plan: Cessation counselling. (6) Thoracic compression fracture Current Visit: Yes Status: Acute Assessment and Plan: Stable at this time. Follow (7) Lumbar compression fracture Current Visit: Yes Status: Acute Assessment and Plan: Plan as stated above. (8) Diabetes mellitus Current Visit: Yes Status: Chronic Assessment and Plan: Sliding scale insulin ordered. Accuchecks ACHS. Diabetic diet. Hold home medications. Controlled at this time. No changes today. - Time Spent with Patient Total time spent is greater than 50% in coordination of care (as documented) at patient's floor/unit and/or counseling patient: Internal Medicine: Result - Labs CBC & Chem 7: 09/25/18 11:42 09/25/18 11:42 - ABG Interpretation ABG results: PT/INR, D-dimer PT 25.0 Seconds (9.4-12.1) H 09/19/18 20:26 Consult Discharge Plan - Plan Referrals: Carol Lee CNP [Primary Care Provider] - Prescriptions: Rivaroxaban [Xarelto] 15 mg PO BID #42 tablet Rivaroxaban [Xarelto] 20 mg PO DAILY #30 tablet ___ (1) DVT (deep venous thrombosis) Qualifiers: DVT location: lower extremity Affected thrombotic vein of extremity: iliac Laterality: left Qualified Code(s): I82.422 - Acute embolism and thrombosis of left iliac vein (3) Increased white blood cell count Qualifiers: Leukocytosis type: unspecified Qualified Code(s): D72.829 - Elevated white blood cell count, unspecified (6) Thoracic compression fracture Qualifiers: Encounter type: subsequent encounter Thoracic vertebra fracture level: unspecified thoracic vertebra Fracture healing: with routine healing Qualified Code(s): S22.000D - Wedge compression fracture of unspecified thoracic vertebra, subsequent encounter for fracture with routine healing (7) Lumbar compression fracture Qualifiers: Encounter type: subsequent encounter Lumbar vertebra fracture level: unspecified lumbar vertebra Fracture healing: with routine healing Qualified Code(s): S32.000D - Wedge compression fracture of unspecified lumbar vertebra, subsequent encounter for fracture with routine healing (8) Diabetes mellitus Qualifiers: Diabetes mellitus type: type 2 Diabetes mellitus senior care insulin use: without intermission coordinator use Diabetes mellitus complication status: without complication Qualified Code(s): E11.9 - Type 2 diabetes mellitus without complications
[2018-09-25] MEDS: Pramoxine 15 GM FOAM Package TP SCH ×3 (10:47→20:39)
[2018-09-25 11:54] LABS: Hematocrit 27.4 % (35.3-44.9); Mean Corpuscular HGB Conc 29.2 g/dL (31.6-35.5); Mean Corpuscular Hemoglobin 28.7 pg (28.0-33.3); Mean Corpuscular Volume 98.2 fL (83.0-100.0); Mean Platelet Volume 9.5 fL (9.4-12.4); Platelet Count 204 K/mcL (140-400); Red Blood Count 2.79 M/mcL (3.82-4.97); Red Cell Distribution Width 19.4 % (11.5-14.5); White Blood Count 11.5 K/mcL (4.3-11.1)
[2018-09-25 12:14] LABS: BUN/Creatinine Ratio 25 (6-26); Blood Urea Nitrogen 17 mg/dL (8-23); Calcium 9.4 mg/dL (8.6-10.3); Carbon Dioxide 25 mEq/L (23-29); Chloride 106 mEq/L (98-107); Glucose 101 mg/dL (70-105); Magnesium 1.6 mg/dL (1.6-2.6); Osmolality,Calculated 286 (280-300); Potassium 3.8 mEq/L (3.5-5.1); Sodium 137 mEq/L (136-145); eGFR For African Americans > 60 (> 60); eGFR For Non-African Americans > 60 (> 60)
[2018-09-26 05:42] LABS: Hemoglobin 7.9 g/dL (11.5-15.4); Mean Corpuscular Hemoglobin 28.3 pg (28.0-33.3); Red Blood Count 2.79 M/mcL (3.82-4.97)
[2018-09-26 05:43] LABS: Hematocrit 27.9 % (35.3-44.9); Mean Corpuscular HGB Conc 28.3 g/dL (31.6-35.5); Mean Platelet Volume 9.7 fL (9.4-12.4); Platelet Count 220 K/mcL (140-400); Red Cell Distribution Width 19.3 % (11.5-14.5)
[2018-09-26 06:05] LABS: BUN/Creatinine Ratio 21 (6-26); Blood Urea Nitrogen 16 mg/dL (8-23); Carbon Dioxide 24 mEq/L (23-29); Chloride 103 mEq/L (98-107); Glucose 103 mg/dL (70-105); Osmolality,Calculated 289 (280-300); Potassium 5.5 mEq/L (3.5-5.1); Sodium 139 mEq/L (136-145); eGFR For African Americans > 60 (> 60); eGFR For Non-African Americans > 60 (> 60)
[2018-09-26] MEDS: Budesonide/Formoterol 80/4.5 1 PUFF INH IH SCH ×3 (07:35→22:28)
[2018-09-26] MEDS: Insulin LISPRO 300 UNITS/3 ML VIAL SQ SCH ×3 (08:40→17:15)
[2018-09-26] MEDS: amLODIPine 5 MG TABLET PO SCH (10:00)
[2018-09-26] MEDS: Famotidine 20 MG TABLET PO SCH ×2 (10:01→17:14)
[2018-09-26] MEDS: *HR* Rivaroxaban 15 MG TABLET PO SCH ×2 (10:01→17:14)
[2018-09-26] MEDS: Lisinopril 20 MG TABLET PO SCH (10:01)
[2018-09-26] MEDS: *HR* HYDROcodone/Acet 5/325 mg TABLET PO PRN (10:05)
[2018-09-26] MEDS: Pramoxine 15 GM FOAM Package TP SCH ×3 (10:15→21:01)
[2018-09-26 11:32] LABS: BUN/Creatinine Ratio 22 (6-26); Blood Urea Nitrogen 15 mg/dL (8-23); Calcium 9.7 mg/dL (8.6-10.3); Carbon Dioxide 25 mEq/L (23-29); Chloride 104 mEq/L (98-107); Glucose 98 mg/dL (70-105); Osmolality,Calculated 285 (280-300); Sodium 137 mEq/L (136-145); eGFR For African Americans > 60 (> 60); eGFR For Non-African Americans > 60 (> 60)
--- NOTE | 2018-09-26 14:22 | Internal Med Progress Note ---
<Onesimo Winn F - Last Filed: 09/26/18 14:32> Hospitalist Progress Note - Encounter Date of Encounter: 09/26/18 Time of Encounter: 14:17 - Subjective Interval History: Patient was seen and examined at bedside. Patient has had no acute events overnight. Patient endorses chest pain and shortness of breath this morning. Denies nausea, vomiting, fevers, chills. Denies any coughing or sputum production. However at bedside. Patient had chest pain located at the left lower chest and had difficulty speaking at this time. Patient says this is similar to her cancer pain but worse. Otherwise no lower leg cramping. Patient continues to be agreeable to discharge to SNF. An EKG was formed at 10:42 AM due to patient endorsing chest pain. My interpretation of EKG shows normal sinus rhythm with a rate of 87, no axis deviation, normal intervals, no evidence of ischemia including ST elevations or depressions, no T-wave inversions, no LVH. No evidence of WPW, or HOCM. - Exam Vitals: Temp Pulse Resp BP Pulse Ox 98.8 F 87 18 142/75 98 09/26/18 10:22 09/26/18 10:22 09/26/18 10:22 09/26/18 10:22 09/26/18 10:22 Exam: GEN: Well-appearing, NAD, conversant. HEAD: Normocephalic, atraumatic. EYES: PERRL, EOMI, anicteric. ENT: MMM. oropharynx without erythema or drainage. NECK: Supple. No LAD. No stiffness or restricted ROM. No tracheal deviation. HEART: Regular rate and regular rhythm, normal S1/S2, no m/r/g. LUNGS: CTAB, good air exchange bilaterally. No wheezing, rubs, or rhonchi. ABDO: Soft, nontender, nondistended with active bowel sounds. : No suprapubic tenderness or CVA tenderness. BACK: No obvious stepoffs or deformities. EXT: Without cyanosis, clubbing or edema. SKIN: Warm and dry without any rash. NEURO: Grossly nonfocal. Alert and oriented, moving all 4 extremities. CN not formally tested but appear grossly intact. PSYCH: Normal affect, no depressed or anxious mood. - Assessment and Plan (1) DVT (deep venous thrombosis) Current Visit: Yes Status: Acute Assessment and Plan: Pt admitted with extensive DVT of L leg. Initially noncompliant with medicatio ns due to cost. Initially on heparin drip and now Xarelto 15mg once a day PO. Tolerating well at this time. (2) Acute kidney failure Current Visit: Yes Status: Resolved Assessment and Plan: BUN/creatinine at baseline today. Resolved. (3) Hypokalemia Current Visit: Yes Status: Resolved Assessment and Plan: Potassium was notably at 5.5 today. Repeat BMP showed 4.1. Did not need addition of Kayexalate. Issue resolved. (4) Anemia Current Visit: Yes Status: Acute Assessment and Plan: Patient's hemoglobin has been stable at 7.9 today. No evidence of active bleeding in stool or urine. (5) Frequent falls Current Visit: Yes Status: Chronic Assessment and Plan: Currently under false precautions. Patient is amenable to go to SNF. Awaiting arrangements. (6) Increased white blood cell count Current Visit: Yes Status: Acute Assessment and Plan: Continue to monitor. White count has been downtrending throughout her stay. White count is 11 today. Expect this is related to cancer. No new issues. (7) Compression fracture Current Visit: Yes Status: Chronic Assessment and Plan: Stable at this time. Patient was noted on imaging to have thoracic and lumbar compression fractures. Follow up outpatient. (8) Diabetes mellitus Current Visit: Yes Status: Chronic Assessment and Plan: Sliding scale insulin ordered. Accuchecks ACHS. Diabetic diet. Hold home medications. Controlled at this time. No changes today. (9) Lung cancer Current Visit: Yes Status: Acute Assessment and Plan: Patient is diagnosed with lung cancer. Currently not on radiation or chemotherapy. Findings are consistent on CT scan. Portable chest x-ray on 09/26 shows a cavitary lesion come assisted with diagnosis of lung cancer. No evidence of any consolidation or infiltrates suggestive of pneumonia. (10) Tobacco abuse Current Visit: Yes Status: Chronic Assessment and Plan: Smoking cessation counseling was provided. DVT Prophylaxis: Heparin GTT - Time Spent with Patient Total time spent is greater than 50% in coordination of care (as documented) at patient's floor/unit and/or counseling patient: less than 15 minutes Plan of Care Discussed with: patient Internal Medicine: Result - Labs CBC & Chem 7: 09/26/18 04:48 09/26/18 10:57 Labs: Short CBC 09/26/18 Range/Units 04:48 WBC 11.0 (4.3-11.1) K/mcL Hgb 7.9 L (11.5-15.4) g/dL Hct 27.9 L (35.3-44.9) % Plt Count 220 (140-400) K/mcL BMP 09/26/18 09/26/18 04:48 10:57 Sodium 139 137 Potassium 5.5 H D 4.0 D Chloride 103 104 Carbon Dioxide 24 25 BUN 16 15 Creatinine 0.76 0.67 Glucose 103 98 Calcium 10.0 9.7 - ABG Interpretation ABG results: PT/INR, D-dimer PT 25.0 Seconds (9.4-12.1) H 09/19/18 20:26 - Impressions Impressions Chest X-Ray 09/26/18 09:34 IMPRESSION: Large right upper lobe opacity corresponding with a cavitary lesion seen on the previous PET evaluation. The left lung is clear. No evidence of active pleural disease. D/ / 09/26/2018 10:25:35 Tarsha Soriano MD / [facility] Interpreting Provider: Tarsha Soriano MD Consult Discharge Plan - Plan Referrals: Carol eLe CNP [Primary Care Provider] - Prescriptions: Rivaroxaban [Xarelto] 15 mg PO BID #42 tablet Rivaroxaban [Xarelto] 20 mg PO DAILY #30 tablet <Ry Can - Last Filed: 09/26/18 15:07> Hospitalist Progress Note - Encounter Date of Encounter: 09/26/18 - Exam Vitals: Temp Pulse Resp BP Pulse Ox 98.8 F 87 18 142/75 98 09/26/18 10:22 09/26/18 10:22 09/26/18 10:22 09/26/18 10:22 09/26/18 10:22 - Assessment and Plan (1) DVT (deep venous thrombosis) Current Visit: Yes Status: Acute (2) Frequent falls Current Visit: Yes Status: Chronic (3) Increased white blood cell count Current Visit: Yes Status: Acute (4) Hypokalemia Current Visit: Yes Status: Acute (5) Tobacco abuse Current Visit: Yes Status: Chronic (6) Thoracic compression fracture Current Visit: Yes Status: Acute (7) Lumbar compression fracture Current Visit: Yes Status: Acute (8) Diabetes mellitus Current Visit: Yes Status: Chronic (9) Chronic respiratory failure with hypoxia Current Visit: Yes Status: Chronic - Time Spent with Patient Total time spent is greater than 50% in coordination of care (as documented) at patient's floor/unit and/or counseling patient: My time was 32min Internal Medicine: Result - Labs CBC & Chem 7: 09/26/18 04:48 09/26/18 10:57 Labs: Short CBC 09/26/18 Range/Units 04:48 WBC 11.0 (4.3-11.1) K/mcL Hgb 7.9 L (11.5-15.4) g/dL Hct 27.9 L (35.3-44.9) % Plt Count 220 (140-400) K/mcL BMP 09/26/18 09/26/18 04:48 10:57 Sodium 139 137 Potassium 5.5 H D 4.0 D Chloride 103 104 Carbon Dioxide 24 25 BUN 16 15 Creatinine 0.76 0.67 Glucose 103 98 Calcium 10.0 9.7 - ABG Interpretation ABG results: PT/INR, D-dimer PT 25.0 Seconds (9.4-12.1) H 09/19/18 20:26 - Impressions Impressions Chest X-Ray 09/26/18 09:34 IMPRESSION: Large right upper lobe opacity corresponding with a cavitary lesion seen on the previous PET evaluation. The left lung is clear. No evidence of active pleural disease. D/ / 09/26/2018 10:25:35 Tarsha Soriano MD / [facility] Interpreting Provider: Tarsha Soriano MD - Attending Attestation I examined this patient and my medical decision-making was reviewed with the Resident Physician on 09/26/18. I agree with the documented findings, disposition and treatment plan as described except to the extent set forth below. Ms Frank is currently admitted for DVT. She remains moderate to high risk due to potential for worsening clinical status. Ms Frank feels bad today. She has a lot more chest congestion. No fever or chills. Has not been on oxygen. Not getting aerosols. No GI issues. Exam: Alert. Confused some today. Mucus membranes dry. NC. EOMI. Neck supple. Heart reg. Diffuse end exp wheeze. Abd soft. No edema. No rash. Moves all extremities. Plan: Chest xray. Supportive care. Restart aerosols. may need diuresis. Probable d/c tomorrow. <Onesimo Winn F - Last Filed: 09/26/18 14:32> (1) DVT (deep venous thrombosis) Qualifiers: DVT location: lower extremity Affected thrombotic vein of extremity: iliac Laterality: left Qualified Code(s): I82.422 - Acute embolism and thrombosis of left iliac vein (2) Acute kidney failure Qualifiers: Acute renal failure type: unspecified Qualified Code(s): N17.9 - Acute kidney failure, unspecified (4) Anemia Qualifiers: Anemia type: unspecified type Qualified Code(s): D64.9 - Anemia, unspecified (6) Increased white blood cell count Qualifiers: Leukocytosis type: unspecified Qualified Code(s): D72.829 - Elevated white blood cell count, unspecified (8) Diabetes mellitus Qualifiers: Diabetes mellitus type: type 2 Diabetes mellitus skilled nursing insulin use: without skilled nursing use Diabetes mellitus complication status: without complication Qualified Code(s): E11.9 - Type 2 diabetes mellitus without complications <Ry Can - Last Filed: 09/26/18 15:07> (1) DVT (deep venous thrombosis) Qualifiers: DVT location: lower extremity Affected thrombotic vein of extremity: iliac Laterality: left Qualified Code(s): I82.422 - Acute embolism and thrombosis of left iliac vein (3) Increased white blood cell count Qualifiers: Leukocytosis type: unspecified Qualified Code(s): D72.829 - Elevated white blood cell count, unspecified (6) Thoracic compression fracture Qualifiers: Encounter type: subsequent encounter Thoracic vertebra fracture level: unspecified thoracic vertebra Fracture healing: with routine healing Qualified Code(s): S22.000D - Wedge compression fracture of unspecified thoracic vertebra, subsequent encounter for fracture with routine healing (7) Lumbar compression fracture Qualifiers: Encounter type: subsequent encounter Lumbar vertebra fracture level: unspecified lumbar vertebra Fracture healing: with routine healing Qualified Code(s): S32.000D - Wedge compression fracture of unspecified lumbar vertebra, subsequent encounter for fracture with routine healing (8) Diabetes mellitus Qualifiers: Diabetes mellitus type: type 2 Diabetes mellitus manager terminal insulin use: without manager terminal use Diabetes mellitus complication status: without complication Qualified Code(s): E11.9 - Type 2 diabetes mellitus without complications
[2018-09-26] MEDS: Ipratropium/Albuterol Neb 3 ML IH SCH ×3 (14:24→22:19)
[2018-09-26 20:04] LABS: ABG Base Excess 0 mEq/L (-2 to 3); ABG HCO3 23 mEq/L (21-27); ABG Oxygen Saturation 97 % (95-98); ABG PCO2 29 mmHg (35-45); ABG PO2 80 mmHg (85-104); ABG TCO2 24 mEq/L (20-26)
[2018-09-26] MEDS ORDERED: *HR* HYDROmorphone 2 MG TABLET PO ONE (20:18)
[2018-09-27] MEDS: Ipratropium/Albuterol Neb 3 ML IH SCH ×3 (03:40→15:17)
[2018-09-27 06:20] LABS: Basophils % 0.2 %; Eosinophils % 0.3 %; Hematocrit 26.4 % (35.3-44.9); Hemoglobin 7.7 g/dL (11.5-15.4); Immature Granulocytes % 0.6 % (0-4); Lymphocytes # 1.2 K/mcL (0.6-4.6); Lymphocytes % 9.8 %; Mean Corpuscular HGB Conc 29.2 g/dL (31.6-35.5); Mean Corpuscular Hemoglobin 28.4 pg (28.0-33.3); Mean Corpuscular Volume 97.4 fL (83.0-100.0); Mean Platelet Volume 10.3 fL (9.4-12.4); Monocytes # 0.6 K/mcL (0.0-1.3); Monocytes % 4.7 %; Neutrophils # 10.1 K/mcL (1.6-8.9); Platelet Count 239 K/mcL (140-400); Red Blood Count 2.71 M/mcL (3.82-4.97); Red Cell Distribution Width 19.2 % (11.5-14.5); Segmented Neutrophils % 84.4 %
[2018-09-27 06:37] LABS: BUN/Creatinine Ratio 22 (6-26); Blood Urea Nitrogen 16 mg/dL (8-23); Calcium 9.8 mg/dL (8.6-10.3); Carbon Dioxide 25 mEq/L (23-29); Chloride 101 mEq/L (98-107); Glucose 114 mg/dL (70-105); Osmolality,Calculated 286 (280-300); Potassium 3.8 mEq/L (3.5-5.1); Sodium 137 mEq/L (136-145); eGFR For African Americans > 60 (> 60); eGFR For Non-African Americans > 60 (> 60)
[2018-09-27] MEDS: *HR* HYDROcodone/Acet 5/325 mg TABLET PO PRN ×2 (07:27→14:23)
[2018-09-27] MEDS: amLODIPine 5 MG TABLET PO SCH (07:29)
[2018-09-27] MEDS: *HR* Rivaroxaban 15 MG TABLET PO SCH (07:29)
[2018-09-27] MEDS: Famotidine 20 MG TABLET PO SCH (07:29)
[2018-09-27] MEDS: Pramoxine 15 GM FOAM Package TP SCH ×2 (07:30→14:26)
[2018-09-27] MEDS: Lisinopril 20 MG TABLET PO SCH (07:30)
[2018-09-27] MEDS: Insulin LISPRO 300 UNITS/3 ML VIAL SQ SCH ×2 (07:31→11:32)
[2018-09-27] MEDS ORDERED: Mag Hydrox/Al Hydrox/Simeth 30 ML UDC PO PRN (09:44)
[2018-09-27] MEDS: Budesonide/Formoterol 80/4.5 1 PUFF INH IH SCH (10:25)
[2018-09-27 11:27] VITALS: BP 108/75
--- NOTE | 2018-09-27 13:00 | Internal Med Progress Note ---
Hospitalist Progress Note - Encounter Date of Encounter: 09/27/18 Time of Encounter: 12:58 - Subjective Interval History: She was seen and examined at bedside. No acute events overnight. Patient does endorse some hemoptysis, described it as some blood spotting on a napkin and she coughs. She otherwise denies any increased chest pain, shortness of breath. Did feel like she had some reflux symptoms. Denies any nausea, vomiting, fevers, chills. Is still amenable to SNF placement. - Exam Vitals: Temp Pulse Resp BP Pulse Ox 98.7 F 86 17 108/75 99 09/27/18 11:17 09/27/18 11:17 09/27/18 11:17 09/27/18 11:17 09/27/18 11:17 Exam: GEN: Well-appearing, NAD, conversant. HEAD: Normocephalic, atraumatic. EYES: PERRL, EOMI, anicteric. ENT: MMM. oropharynx without erythema or drainage. NECK: Supple. No LAD. No stiffness or restricted ROM. No tracheal deviation. HEART: Regular rate and regular rhythm, normal S1/S2, no m/r/g. LUNGS: Wheezing and crackles in all lung kerr, consistent with baseline. ABDO: Soft, nontender, nondistended with active bowel sounds. : No suprapubic tenderness or CVA tenderness. BACK: No obvious stepoffs or deformities. EXT: Without cyanosis, clubbing or edema. SKIN: Warm and dry without any rash. NEURO: Grossly nonfocal. Alert and oriented, moving all 4 extremities. CN not formally tested but appear grossly intact. PSYCH: Normal affect, no depressed or anxious mood. - Assessment and Plan (1) DVT (deep venous thrombosis) Current Visit: Yes Status: Acute Assessment and Plan: Pt admitted with extensive DVT of L leg. Initially noncompliant with medications due to cost. Initially on heparin drip and now on Xarelto 15mg once a day PO. Tolerating well at this time. (2) Acute kidney failure Current Visit: Yes Status: Resolved Assessment and Plan: BUN/creatinine at baseline today. Resolved. (3) Hypokalemia Current Visit: Yes Status: Resolved Assessment and Plan: Potassium was 3.8 today. No repletion necessary. Issue resolved. (4) Anemia Current Visit: Yes Status: Acute Assessment and Plan: Patient's hemoglobin has been stable at 7.7 today. No evidence of active bleeding in stool or urine. (5) Frequent falls Current Visit: Yes Status: Chronic Assessment and Plan: Currently under falls precautions. Patient is amenable to go to SNF. Awaiting arrangements. (6) Increased white blood cell count Current Visit: Yes Status: Chronic Assessment and Plan: Continue to monitor. White count has been downtrending throughout her stay. White count slightly up at 12 today. No clinical signs of infection. Expect this is related to cancer. No new issues. (7) Compression fracture Current Visit: Yes Status: Chronic Assessment and Plan: Stable at this time. Patient was noted on imaging to have thoracic and lumbar compression fractures. Follow up outpatient. (8) Diabetes mellitus Current Visit: Yes Status: Chronic Assessment and Plan: Sliding scale insulin ordered. Accuchecks ACHS. Diabetic diet. Hold home medications. Controlled at this time. No changes today. (9) Lung cancer Current Visit: Yes Status: Chronic Assessment and Plan: Patient is diagnosed with lung cancer. Currently not on radiation or chemotherapy. Findings are consistent on CT scan. Portable chest x-ray on 09/26 shows a cavitary lesion come assisted with diagnosis of lung cancer. No evidence of any consolidation or infiltrates suggestive of pneumonia. (10) Tobacco abuse Current Visit: Yes Status: Chronic Assessment and Plan: Smoking cessation counseling was provided. DVT Prophylaxis: Xarelto 15mg PO - Time Spent with Patient Total time spent is greater than 50% in coordination of care (as documented) at patient's floor/unit and/or counseling patient: less than 15 minutes Internal Medicine: Result - Labs CBC & Chem 7: 09/27/18 05:26 09/27/18 05:26 Labs: Short CBC 09/27/18 Range/Units 05:26 WBC 12.0 H (4.3-11.1) K/mcL Hgb 7.7 L (11.5-15.4) g/dL Hct 26.4 L (35.3-44.9) % Plt Count 239 (140-400) K/mcL Neutrophils # 10.1 H (1.6-8.9) K/mcL BMP 09/27/18 05:26 Sodium 137 Potassium 3.8 Chloride 101 Carbon Dioxide 25 BUN 16 Creatinine 0.73 Glucose 114 H Calcium 9.8 - ABG Interpretation ABG results: ABG ABG pH 7.50 pH Units (7.32-7.45) H 09/26/18 20:01 ABG pCO2 29 mmHg (35-45) L 09/26/18 20:01 ABG pO2 80 mmHg (85-104) L 09/26/18 20:01 ABG O2 Saturation 97 % (95-98) 09/26/18 20:01 PT/INR, D-dimer PT 25.0 Seconds (9.4-12.1) H 09/19/18 20:26 Consult Discharge Plan - Plan Referrals: Carol Lee CNP [Primary Care Provider] - Prescriptions: Rivaroxaban [Xarelto] 15 mg PO BID #42 tablet Rivaroxaban [Xarelto] 20 mg PO DAILY #30 tablet (1) DVT (deep venous thrombosis) Qualifiers: DVT location: lower extremity Affected thrombotic vein of extremity: iliac Laterality: left Qualified Code(s): I82.422 - Acute embolism and thrombosis of left iliac vein (2) Acute kidney failure Qualifiers: Acute renal failure type: unspecified Qualified Code(s): N17.9 - Acute kidney failure, unspecified (4) Anemia Qualifiers: Anemia type: unspecified type Qualified Code(s): D64.9 - Anemia, unspecified (6) Increased white blood cell count Qualifiers: Leukocytosis type: unspecified Qualified Code(s): D72.829 - Elevated white blood cell count, unspecified (8) Diabetes mellitus Qualifiers: Diabetes mellitus type: type 2 Diabetes mellitus terminal press operator insulin use: without chcf use Diabetes mellitus complication status: without complication Qualified Code(s): E11.9 - Type 2 diabetes mellitus without complications
--- NOTE | 2018-09-27 13:06 | Electrocardiograph Report ---
[place] [id number] Test Date: 2018-09-26 Pat Name: Ivana Frank Department: 115 Room: 3A41 Gender: F Forensic Economist: : 1945 Requested By: [id number] Order Number: [id number] Reading MD: Naida Pedraza Measurements Intervals [place] Rate: 87 P: [place]: 0 QRS: -51 QRSD: 95 T: -43 QT: 251 QTc: 296 Interpretive Statements ATRIAL FIBRILLATION WITH ABERRANT CONDUCTION OR VENTRICULAR PREMATURE COMPLEXES LEFT ANTERIOR FASCICULAR BLOCK NONSPECIFIC ST & T-WAVE ABNORMALITY Electronically Signed On 09-27-2018 13:05:07 EDT by Naida Pedraza
--- NOTE | 2018-09-27 13:12 | Discharge Summary ---
<Ry Can - Last Filed: 09/27/18 13:51> Date of Encounter: 09/27/18 - Discharge Diagnosis (1) DVT (deep venous thrombosis) Status: Acute Qualifiers: DVT location: lower extremity Affected thrombotic vein of extremity: iliac Laterality: left Qualified Code(s): I82.422 - Acute embolism and thrombosis of left iliac vein (2) Frequent falls Status: Chronic (3) Increased white blood cell count Status: Chronic Qualifiers: Leukocytosis type: unspecified Qualified Code(s): D72.829 - Elevated white blood cell count, unspecified (4) Hypokalemia Status: Acute (5) Tobacco abuse Status: Chronic (6) Thoracic compression fracture Status: Acute Qualifiers: Encounter type: subsequent encounter Thoracic vertebra fracture level: unspecified thoracic vertebra Fracture healing: with routine healing Qualified Code(s): S22.000D - Wedge compression fracture of unspecified thoracic vertebra, subsequent encounter for fracture with routine healing (7) Lumbar compression fracture Status: Acute Qualifiers: Encounter type: subsequent encounter Lumbar vertebra fracture level: unspecified lumbar vertebra Fracture healing: with routine healing Qualified Code(s): S32.000D - Wedge compression fracture of unspecified lumbar vertebra, subsequent encounter for fracture with routine healing (8) Diabetes mellitus Status: Chronic Qualifiers: Diabetes mellitus type: type 2 Diabetes mellitus nursing home insulin use: without termite control servicer use Diabetes mellitus complication status: without complication Qualified Code(s): E11.9 - Type 2 diabetes mellitus without complications (9) Chronic respiratory failure with hypoxia Status: Chronic Hospital course: Ms. Frank is a 73 year old female - Time Spent with Patient Total time spent providing and/or coordinating discharge services: - Discharge Medications Prescriptions: New Rivaroxaban [Xarelto] 15 mg PO BID #42 tablet Rivaroxaban [Xarelto] 20 mg PO DAILY #30 tablet Continued GlipiZIDE [Glucotrol] 5 mg PO BID Lisinopril [Zestril] 40 mg PO DAILY Oxybutynin [Ditropan] 5 mg PO BID Ranitidine HCl [Heartburn Relief] 150 mg PO BID Sertraline [Zoloft] 100 mg PO DAILY Spironolactone [Aldactone] 25 mg PO DAILY Alendronate Sodium 70 mg PO SANCHES Allopurinol [Zyloprim 100 MG] 100 mg PO DAILY Amlodipine Besylate 10 mg PO DAILY Pramoxine [Proctofoam] 15 gm TP TID #1 foam Rivaroxaban [Xarelto] 20 mg PO DAILY Atorvastatin [Lipitor] 40 mg PO HS Albuterol Sulfate [Ventolin Hfa] 2 puff IH Q6H PRN PRN Reason: Shortness Of Breath Tizanidine HCl 2 mg PO TID PRN PRN Reason: Muscle Spasm hydrOXYzine HCl [Hydroxyzine HCl] 25 mg PO TID PRN PRN Reason: Anxiety Budesonide/Formoterol 80/4.5 [Symbicort 80/4.5] 2 puff IH BID Potassium Chloride [K-Tab ER] 10 meq PO BIDWM HYDROcodone/Acet 5/325 mg [Sterling 5-325 mg] 1 tab PO Q6H PRN 2 Days #8 tablet PRN Reason: Pain Home Medications: GlipiZIDE [Glucotrol] 5 mg PO BID 04/16/17 [History] Lisinopril [Zestril] 40 mg PO DAILY 04/16/17 [History] Oxybutynin [Ditropan] 5 mg PO BID 04/16/17 [History] Ranitidine HCl [Heartburn Relief] 150 mg PO BID 04/16/17 [History] Sertraline [Zoloft] 100 mg PO DAILY 04/16/17 [History] Spironolactone [Aldactone] 25 mg PO DAILY 04/16/17 [History] Alendronate Sodium 70 mg PO SANCHES 05/27/17 [History] Allopurinol [Zyloprim 100 MG] 100 mg PO DAILY 05/27/17 [History] Amlodipine Besylate 10 mg PO DAILY 05/27/17 [History] Pramoxine [Proctofoam] 15 gm TP TID #1 foam 09/14/17 [Rx] Rivaroxaban [Xarelto] 20 mg PO DAILY 09/19/18 [History] Albuterol Sulfate [Ventolin Hfa] 2 puff IH Q6H PRN 09/21/18 [History] Atorvastatin [Lipitor] 40 mg PO HS 09/21/18 [History] Budesonide/Formoterol 80/4.5 [Symbicort 80/4.5] 2 puff IH BID 09/21/18 [History] Potassium Chloride [K-Tab ER] 10 meq PO BIDWM 09/21/18 [History] Tizanidine HCl 2 mg PO TID PRN 09/21/18 [History] hydrOXYzine HCl [Hydroxyzine HCl] 25 mg PO TID PRN 09/21/18 [History] Rivaroxaban [Xarelto] 15 mg PO BID #42 tablet 09/22/18 [Rx] Rivaroxaban [Xarelto] 20 mg PO DAILY #30 tablet 09/22/18 [Rx] HYDROcodone/Acet 5/325 mg [Sterling 5-325 mg] 1 tab PO Q6H PRN 2 Days #8 tablet 0 09/27/18 [Rx] Allergies/Adverse Reactions: Allergy/AdvReac Type Severity Reaction Status Date / Time iodine Allergy Hives Verified 09/21/18 14:52 Date of admission: 09/21/18 14:53 Primary care physician: YUSUF Edge Consults: 09/20/18 02:40 Consult to Nutrition [CONS] Routine Comment: Consulting Provider: NUTRITION Reason for Dietary Consult: MST Score Consult to Consumer Services Advisor [CONS] Routine Reason for SW Consult: potiential need for help after D/C 09/20/18 02:41 OT [Consult to Occupational Therapy] [CONS] Routine Comment: Evaluate, develop and implement POC Reason for Consult: multiple falls Does patient have active BEDREST order?: No Is patient medically & hemodynamically stable?: No PT [Consult to Physical Therapy] [CONS] Routine Comment: Evaluate, develop and implement POC Reason for Consult: multiple falls Does patient have active BEDREST order?: No Is patient medically & hemodynamically stable?: No - Constitutional Vitals: Temp Pulse Resp BP Pulse Ox 98.7 F 86 17 108/75 99 09/27/18 11:17 09/27/18 11:17 09/27/18 11:17 09/27/18 11:17 09/27/18 11:17 - Patient Status Disposition: Transfer SNF Condition: Fair - Ambulatory Orders Ambulatory Orders: Complete Blood Count [HEME] Time Frame: 1 Week, Location: Determined By Patient - Discharge Instructions Follow Up With: Carol Lee CNP [Primary Care Provider] - Additional Instructions: You have been admitted to the hospital for a deep venous thrombosis along with acute kidney injury, hypokalemia, anemia, frequent falls. Currently, your issues of kidney injury, low potassium are resolved. Please take your Xarelto as prescribed to prevent further progression of clots and to prevent clot formation. Please follow up with your primary care provider to discuss your hospital admission in for further evaluation. Please also check a CBC in the next week to monitor your anemia. Please also follow up with your oncologist at [facility] to discuss further care and treatment for your diagnosis of lung cancer. Please return to the hospital or emergency department if your symptoms worsen, such as increased chest pain, shortness of breath, fevers, chills. - Attending Attestation I examined this patient and my medical decision-making was reviewed with the Resident Physician on 09/27/18. I agree with the documented findings, disposition and treatment plan as described except to the extent set forth below. Ms Frank has been admitted for acute DVT. She has hx of lung cancer. She was started on heparin and switched to Xarelto. She is tolerating this. SHe has had some issues with increased cough related to her lung cancer. SHe wears oxygen at home. Today she is awake and alert. SHe is afebrile and ready for discharge. Exam: Alert. Comfortable. NC. EOMI. Mucus membranes dry. Heart not tachy. Rhonchi bilaterally. Abd soft. No rash. Moves all extremities. Plan: D/C to SNF today. D/C time 39min <Onesimo Winn F - Last Filed: 09/27/18 14:01> - NOTES TO OUTPATIENT PROVIDER Notes to Outpatient Provider: Patient was admitted to the hospital for DVT in the context of medication noncompliance. Patient was on Xarelto of however she had not been taking it due to cost. She was started on a heparin drip and then restarted on Xarelto. In the Hospital patient was given resources to have Xarelto free for the first month, with a significantly reduced cost for the rest of the treatment duration. Patient was agreeable to continue taking her Xarelto at the reduced cost. Patient follows with oncology at [facility]. She has a diagnosis of lung cancer, but is currently not getting any radiation or chemotherapy as of yet. Patient is limited in her ability to take care of herself. Will need PT/OT for further functionality. She does have a history of frequent falls and a CT scan of the lumbar and thoracic spine showed age indeterminate compression fractures of the thoracic and lumbar spine. Patient also has had an elevated white blood count that has been decreasing during her stay, most likely related to cancer. Smoking cessation counseling was provided to the patient. Please follow-up CBC in a week to monitor anemia. Estimated PT Needs at Discharge: SNF/ECF Estimated OT Needs at Discharge: SNF/ECF Estimated ST Needs at Discharge: SNF/ECF Date of Encounter: 09/27/18 Time of Encounter: 13:08 - Discharge Diagnosis (1) DVT (deep venous thrombosis) Priority: Primary Status: Acute Qualifiers: DVT location: lower extremity Affected thrombotic vein of extremity: iliac Laterality: left Qualified Code(s): I82.422 - Acute embolism and thrombosis of left iliac vein (2) Acute kidney failure Priority: Secondary Status: Resolved Qualifiers: Acute renal failure type: unspecified Qualified Code(s): N17.9 - Acute kidney failure, unspecified (3) Hypokalemia Priority: Secondary Status: Resolved (4) Anemia Priority: Secondary Status: Acute Qualifiers: Anemia type: unspecified type Qualified Code(s): D64.9 - Anemia, unspecified (5) Frequent falls Priority: Secondary Status: Chronic (6) Increased white blood cell count Priority: Secondary Status: Chronic Qualifiers: Leukocytosis type: unspecified Qualified Code(s): D72.829 - Elevated white blood cell count, unspecified (7) Compression fracture Priority: Secondary Status: Chronic (8) Diabetes mellitus Priority: Secondary Status: Chronic Qualifiers: Diabetes mellitus type: type 2 Diabetes mellitus termite control servicer insulin use: without nursing home use Diabetes mellitus complication status: without complication Qualified Code(s): E11.9 - Type 2 diabetes mellitus without complications (9) Lung cancer Priority: Secondary Status: Chronic (10) Tobacco abuse Priority: Secondary Status: Chronic Hospital course: Ms. Frank is a 73 year old female with a past medical history of hypertension, DVT, COPD, asthma, lung cancer, diabetes, depression, tobacco abuse who p resented to the ER for left lower extremity swelling and positive outpatient ultrasound showing extensive DVT of the left femoral, iliac veins. Patient was previously prescribed Xarelto but had been taking it inconsistently. She also has a history of frequent mechanical falls at home, but she denied hitting her head or losing consciousness. She was recently diagnosed with lung cancer and is following with oncology at [facility], getting ready to start chemotherapy and radiation. In the ER, patient complained of some point her back from recent falls but no other complaints besides left lower extremity swelling. CT of the abdomen and pelvis showed no acute abnormalities. CT of the chest showed confluent right hilar mass with associated right mid lung airspace disease most likely neoplastic. There was a cavitary lesion consistent with her previous diagnosis of lung cancer. A CT of the lumbar and thoracic spine also showed age indeterminate compression fractures of T5, T7, T8, L1, L3 and multilevel degenerative changes. Vision had a normal EKG with no ischemic changes compared to prior. Patient typically lives a home with her significant other who helps take care of her. During her hospital course, patient was initially started on a heparin drip for anticoagulation. After 2 days she was then put on Xarelto. The medication was [place] checked where she could have the medication free for approximately one month, and at a significantly reduced cost for the duration of the treatment. PT and OT consults were obtained for history of frequent falls. Patient did have a elevated white blood count throughout her stay, however it was downtrending. Most likely due to history of cancer. She did not have any clinical signs of infection such as fever, urinary changes, cough. Patient was also hypokalemic and orally supplemented with potassium chloride. Patient also presented with ARANZA likely secondary to poor by mouth intake. At discharge BU1/creatinine were normalized. Patient also had anemia with a hemoglobin around 8-9, stable at discharge. Patient has an extensive history of smoking, smoking cessation was strongly encouraged to the patient. Discharge discussed with: patient, nurse Time spent discussing smoking cessation with patient: 3 to 10 minutes - Time Spent with Patient Total time spent providing and/or coordinating discharge services: Time spent: Greater than 30 minutes Date of admission: 09/21/18 14:53 Primary care physician: YUSUF Edge Consults: 09/20/18 02:40 Consult to Nutrition [CONS] Routine Comment: Consulting Provider: NUTRITION Reason for Dietary Consult: MST Score Consult to Consumer Services Advisor [CONS] Routine Reason for SW Consult: potiential need for help after D/C 09/20/18 02:41 OT [Consult to Occupational Therapy] [CONS] Routine Comment: Evaluate, develop and implement POC Reason for Consult: multiple falls Does patient have active BEDREST order?: No Is patient medically & hemodynamically stable?: No PT [Consult to Physical Therapy] [CONS] Routine Comment: Evaluate, develop and implement POC Reason for Consult: multiple falls Does patient have active BEDREST order?: No Is patient medically & hemodynamically stable?: No Discharging clinician: Ry Can Anticipated date of discharge: 09/27/18 - Constitutional Vitals: Temp Pulse Resp BP Pulse Ox 98.7 F 86 17 108/75 99 09/27/18 11:17 09/27/18 11:17 09/27/18 11:17 09/27/18 11:17 09/27/18 11:17 Exam: GEN: Well-appearing, NAD, conversant. HEAD: Normocephalic, atraumatic. EYES: PERRL, EOMI, anicteric. ENT: MMM. oropharynx without erythema or drainage. NECK: Supple. No LAD. No stiffness or restricted ROM. No tracheal deviation. HEART: Regular rate and regular rhythm, normal S1/S2, no m/r/g. LUNGS: Wheezing and crackles in all lung kerr. ABDO: Soft, nontender, nondistended with active bowel sounds. : No suprapubic tenderness or CVA tenderness. BACK: No obvious stepoffs or deformities. EXT: Without cyanosis, clubbing or edema. SKIN: Warm and dry without any rash. NEURO: Grossly nonfocal. Alert and oriented, moving all 4 extremities. CN not formally tested but appear grossly intact. PSYCH: Normal affect, no depressed or anxious mood. - Patient Status Functional capacity at discharge: uses cane/walker Overall status at discharge: patient is progressing back to baseline - Diet and Activity Activity: as per physical therapy, increase activity as tolerated, resume usual activities as tolerated, wear oxygen at all times Diet: diabetic diet
--- NOTE | 2018-09-27 13:45 | Physician Discharge Referral ---
ExtendedCare Referral Info Transfer To: [facility] Provider in Charge: Dr. Ry Can Provider in Charge after Transfer: PCP Institutional Level of Care: Skilled - Diagnosis (1) DVT (deep venous thrombosis) Priority: Primary Status: Acute (2) Acute kidney failure Priority: Secondary Status: Resolved (3) Hypokalemia Priority: Secondary Status: Resolved (4) Anemia Priority: Secondary Status: Acute (5) Frequent falls Priority: Secondary Status: Chronic (6) Increased white blood cell count Priority: Secondary Status: Chronic (7) Compression fracture Priority: Secondary Status: Chronic (8) Diabetes mellitus Priority: Secondary Status: Chronic (9) Lung cancer Priority: Secondary Status: Chronic (10) Tobacco abuse Priority: Secondary Status: Chronic - Transfer Medications Prescriptions: HYDROcodone/Acet 5/325 mg [Snowmass 5-325 mg] 1 tab PO Q6H PRN 2 Days #8 tablet PRN Reason: Pain Rivaroxaban [Xarelto] 15 mg PO BID #42 tablet Rivaroxaban [Xarelto] 20 mg PO DAILY #30 tablet Home Medications: GlipiZIDE [Glucotrol] 5 mg PO BID 04/16/17 [History] Lisinopril [Zestril] 40 mg PO DAILY 04/16/17 [History] Oxybutynin [Ditropan] 5 mg PO BID 04/16/17 [History] Ranitidine HCl [Heartburn Relief] 150 mg PO BID 04/16/17 [History] Sertraline [Zoloft] 100 mg PO DAILY 04/16/17 [History] Spironolactone [Aldactone] 25 mg PO DAILY 04/16/17 [History] Alendronate Sodium 70 mg PO SANCHES 05/27/17 [History] Allopurinol [Zyloprim 100 MG] 100 mg PO DAILY 05/27/17 [History] Amlodipine Besylate 10 mg PO DAILY 05/27/17 [History] Pramoxine [Proctofoam] 15 gm TP TID #1 foam 09/14/17 [Rx] Rivaroxaban [Xarelto] 20 mg PO DAILY 09/19/18 [History] Albuterol Sulfate [Ventolin Hfa] 2 puff IH Q6H PRN 09/21/18 [History] Atorvastatin [Lipitor] 40 mg PO HS 09/21/18 [History] Budesonide/Formoterol 80/4.5 [Symbicort 80/4.5] 2 puff IH BID 09/21/18 [History] Potassium Chloride [K-Tab ER] 10 meq PO BIDWM 09/21/18 [History] Tizanidine HCl 2 mg PO TID PRN 09/21/18 [History] hydrOXYzine HCl [Hydroxyzine HCl] 25 mg PO TID PRN 09/21/18 [History] Rivaroxaban [Xarelto] 15 mg PO BID #42 tablet 09/22/18 [Rx] Rivaroxaban [Xarelto] 20 mg PO DAILY #30 tablet 09/22/18 [Rx] HYDROcodone/Acet 5/325 mg [Snowmass 5-325 mg] 1 tab PO Q6H PRN 2 Days #8 tablet 09/27/18 [Rx] Allergies/Adverse Reactions: Allergy/AdvReac Type Severity Reaction Status Date / Time iodine Allergy Hives Verified 09/21/18 14:52 - Respiratory Orders Oxygen / L per min (2 L) Smoking Cessation: Smoking cessation has been advised. For more information, call the [place] Tobacco Quit Line at 5-932-YMHM-NOW. - Lab Orders Lab Orders: CBC (F/u in one week.) - Advance Directives Code Status: Full Code - Mobility Orders Ambulate - Rehabiliation Orders Rehab Potential: Good Rehab Orders: ROM Exercises, Evaluation for Physical Therapy, Evaluation for Occupational Therapy - Diet Orders Renal (Diabetic diet) CERTIFICATION: I certify that the transfer of the above named patient to an Extended Care Facility is necessary for the continuing treatment of the diagnosis listed. The above information is true and accurate reflection of patient's current condition. Confidential - Redisclosure prohibited without a patient's written consent.
== END 2018-09-27 15:43 | DRG 300 ==
LOC: EMEROOARM 19:08 → 3ANU 19:08 → SUATTDRO 09-20 00:16 → 3ANU 09-20 00:35
PROVIDERS: ADMIT Family Medicine; ATTEND Internal Medicine